=== PATIENT | male | born 1955 | race Caucasian/White ===

== ENCOUNTER 2019-05-09 08:38 | Outpatient (CLI) | payer MEDICARE, MEDICAID, SELFPAY ==
[2019-05-09 12:56] VITALS: O2SAT 87; O2SAT 92
== END 2019-05-09 08:39 | disposition home or self-care (01) ==
LOC: RT 08:40
PROVIDERS: Family Provider Nurse Practitioner Family; Visit Provider Internal Medicine Critical Care Medicine
DX: J44.9 Chronic obstructive pulmonary disease, unspecified (principal)
CPT/HCPCS: 94060; 94726; 94729; J7611

== ENCOUNTER 2019-05-09 12:00 | Outpatient (CLI) | payer MEDICARE, MEDICAID, SELFPAY | END 2019-05-09 12:01 | disposition home or self-care (01) | LOC: SLEEP 05-10 16:49 | PROVIDERS: Family Provider Nurse Practitioner Family; Visit Provider Internal Medicine Critical Care Medicine | DX: J44.9 Chronic obstructive pulmonary disease, unspecified (principal); F17.210 Nicotine dependence, cigarettes, uncomplicated | CPT/HCPCS: 94762 ==

== ENCOUNTER 2019-06-20 11:30 | Outpatient (CLI) | payer MEDICARE, MEDICAID, SELFPAY ==
[2019-06-20 12:14] LABS: Alanine Aminotransferase 27 U/L (0-41); Albumin Level 4.3 g/dL (3.5-5.2); Alkaline Phosphatase 90 IU/L (40-130); Anion Gap 10.3 (5-19); Aspartate Amino Transferase 23 U/L (0-40); Blood Urea Nitrogen 10 mg/dL (8-23); Calcium 10.4 mg/dL (8.5-10.5); Carbon Dioxide 32 mmol/L (22-29); Chloride 100 mmol/L (98-107); Globulin 3.4 g/dL (1.3-4.6); Glomerular Filtration Rate 134.8 mL/min (90-130); Glucose 124 mg/dL (65-115); Osmolality Calculated 283 mOsm/kg (285-295); Potassium 4.3 mmol/L (3.5-5.1); Sodium 138 mmol/L (136-145); Total Bilirubin 0.2 mg/dL (0.15-1.2); Total Protein 7.7 g/dL (6.6-8.7)
== END 2019-06-20 11:31 | disposition home or self-care (01) ==
LOC: LAB 11:36
PROVIDERS: Family Provider Nurse Practitioner Family; PCP Nurse Practitioner Family; Visit Provider Internal Medicine Critical Care Medicine
DX: J44.9 Chronic obstructive pulmonary disease, unspecified (principal)
CPT/HCPCS: 80053

== ENCOUNTER 2019-10-30 09:00 | Emergency (ER) | payer MEDICARE, MEDICAID, SELFPAY ==
[2019-10-30 09:04] VITALS: BP 157/86; PULSE 95; RESP 18; TEMP 36.7; O2SAT 98; BMI 26.6
--- NOTE | 2019-10-30 09:27 | ED_ITS ---
HPI - URI/Sore Throat General: Chief Complaint: Upper Respiratory Infection Stated Complaint: SOB, Congestion, light headed Time Seen by Provider: 10/30/19 09:12 Source: patient Mode of arrival: ambulatory Limitations: no limitations History of Present Illness: HPI Narrative: Patient is a 64-year-old male who presents to ED today with complaints of nasal congestion and sinus pain . Patient tells me that he gets very congested when he lies flat. He states when he sits up he will have rhinorrhea. He states when he blows his nose he gets a green phlegm. Patient states symptoms have been present for 5 to 6 months. He takes loratadine daily. He states approximately 3 weeks ago he was treated with doxycycline and steroids which seemed to help however when patient stopped these medications his symptoms returned. He has been using oxymetazoline over the past 1.5 weeks. MD elicited complaint: sinus pain Onset (ago): month(s) Description of mucous: green Able to tolerate fluids by mouth: Yes Associated symptoms: Reports no associated symptoms, nasal congestion and sinus pain; Deny chills, chest pain, fever(s), headache(s), nausea or vomiting Treatments prior to arrival: antibiotics and other (steroids, decongestants ) Review of Systems Const: Denies: fever(s) or chills Eyes: Denies: change in vision, blurry vision, photophobia, floaters or seeing flashes ENMT: Reports: nasal discharge, nasal congestion and sinus pain; Denies: throat pain, uvular edema, odynophagia, ear discharge, change in hearing or tinnitus Card: Denies: chest pain Resp: Denies: dyspnea GI: Denies: nausea or vomiting Musc: Denies: neck pain Skin/Breast: Denies: rash Neuro: Denies: headache(s) PFS ED PFSH: Medical History (Updated 10/30/19 @ 09:36 by COLEMAN Zhang) Afib ASHD (arteriosclerotic heart disease) CHF (congestive heart failure) Colon polyps COPD (chronic obstructive pulmonary disease) GERD (gastroesophageal reflux disease) HTN (hypertension) Pulmonary hypertension Pulmonary nodule, right Skin cancer Xanthelasma Surgical History H/O eye surgery Hx of cataract surgery Status post surgical removal of malignant neoplasm of skin Stented coronary artery Family History Mother Cancer Pancreatic Father COPD (chronic obstructive pulmonary disease) Sister Diabetes Brother Diabetes Social History (Updated 10/30/19 @ 09:11 by Julius Estes RN) Smoking and tobacco status: current every day smoker cigarettes Packs smoked per day: 0.5 Years cigarettes smoked: 50 Quit status (tobacco): not considering quitting Alcohol intake: current Alcohol intake frequency: 0-2 Drinks per Day Alcohol type: beer Desire information about alcohol rehabilitation?: No Substance/Drug Use: never Lives independently: Yes Household members: none Current occupational status: disabled History of recent travel: No Current gender identity: Male Physical Exam Const: COMMON NORMALS: no acute distress, patient oriented x3, no limitations and alert ORIENTATION/CONSCIOUSNESS: Yes oriented to person, Yes oriented to place and Yes oriented to time HENMT: COMMON NORMALS: normocephalic, atraumatic, hearing grossly normal bilaterally, external ears normal, EAC's normal, TM's normal bilaterally, Normal external nose present and oropharynx normal HEAD & SCALP: normal to inspection, normocephalic and atraumatic FACE & SINUS: sinus tenderness frontal and maxillary NOSE: Normal external nose present EXTERNAL EAR: Yes external ears normal EXTERNAL AUDITORY CANAL: EAC's normal TYMPANIC MEMBRANE: TM's normal bilaterally THROAT: no uvular edema Eye: COMMON NORMALS: Equal, round and reactive pupils present, EOMs intact bilaterally, conjunctivae normal and no scleral icterus CONJUNCTIVA: Yes conjunctivae normal PUPIL: Yes Equal, round and reactive pupils present Neck/C-Spine: COMMON NORMALS: full ROM, no lymphadenopathy and no meningeal signs Resp: COMMON NORMALS: normal respiratory effort and clear to auscultation bilaterally AUSCULTATION: clear to auscultation bilaterally OTHER: on his normal 4L O2 with normal sats Cardio: COMMON NORMALS: regular rate and regular rhythm RATE: regular rate RHYTHM: regular rhythm Neuro: COMMON NORMALS: patient oriented x3 SENSORIUM/ORIENTATION: Yes alert, Yes oriented to person, Yes oriented to place and Yes oriented to time MENINGEAL SIGNS: Yes no meningeal signs Skin: COMMON NORMALS: no rashes or lesions noted GENERAL SKIN EXAM: no rashes or lesions noted Course Vital Signs: Vital signs: Vital Signs Temperature 98.0 F 10/30/19 09:04 Pulse Rate 95 10/30/19 09:04 Respiratory Rate 18 10/30/19 09:04 Blood Pressure 157/86 10/30/19 09:04 Pulse Oximetry 98 10/30/19 09:04 MDM - URI/Sore Throat MDM Narrative: Medical decision making narrative: Recommend patient see Dr. Torres for further evaluation of chronic sinusitis. I did not recommend further antibiotics at this time as most cases of sinusitis are not bacterial. We will go ahead and place patient on Flonase and steroids as he has been using the oxymetazoline for 1.5 weeks now. Recommend he discontinue this medication. Discharge Plan Discharge Patient Disposition: Home Clinical Impression: Rhinitis medicamentosa Sinusitis Qualifiers: Sinusitis location: maxillary Chronicity: chronic Qualified Code(s): J32.0 - Chronic maxillary sinusitis Condition: Stable Prescriptions: New prednisone 10 mg tablet 10 mg PO DAILY 6 Days Qty: 20 RF: 0 Children's Flonase Allergy Rlf 50 mcg/actuation spray,suspension 1 spray INTRANASAL DAILY Qty: 16 RF: 0 No Action clopidogrel 75 mg tablet 75 mg PO DAILY RF: 0 omeprazole 40 mg capsule,delayed release(DR/EC) 40 mg PO DAILY RF: 0 alendronate 70 mg tablet, effervescent 70 mg PO DAILY RF: 0 ergocalciferol (vitamin D2) 1,250 mcg (50,000 unit) capsule 1,250 mcg PO .Weekly RF: 0 atorvastatin 80 mg tablet 80 mg PO DAILY RF: 0 isosorbide dinitrate 30 mg tablet 30 mg PO DAILY RF: 0 losartan 100 mg tablet 100 mg PO DAILY RF: 0 loratadine 10 mg tablet 10 mg PO DAILY RF: 0 albuterol sulfate [ProAir HFA] 90 mcg/actuation HFA aerosol inhaler 2 puff INHALATION Q6H PRNRF: 0 tramadol 50 mg tablet 150 mg PO BID RF: 0 acetaminophen [Tylenol Extra Strength] 500 mg tablet 1,500 mg PO BID RF: 0 doxycycline hyclate 100 mg capsule 100 mg PO BID 10 Days Qty: 20 RF: 0 ipratropium-albuterol 0.5 mg-3 mg(2.5 mg base)/3 mL solution for nebulization 3 ml INHALATION Q4H Qty: 540 RF: 3 Discharge Orders: Discharge Order (Routine); Ordered 10/30/19 Ordered By: Marta Arnold Referrals: Brandon Torres MD [Physician] - Melina Lockett NP [Primary Care Provider] - Patient Instructions: Sinusitis (ED), Sinusitis - Chronic Activity Restrictions/Additional Instructions: As discussed case management should contact you shortly to set you up an appointment to see Dr. Torres/ENT. Coding Level of Care Code ED Progressive Assembler And Fitter for Samantha Goss
[2019-10-30 10:13] VITALS: BP 150/93; PULSE 91; RESP 20; O2SAT 100
--- NOTE | 2019-10-31 14:35 | PC.SOCIAL ---
Called Dr Torres office regarding referral. Information provided to his staff and they will review then call patient with appt. Faxed records to number provided [phone] with confirmation that records were transmitted successfully.
--- NOTE | 2019-11-04 10:22 | DCPLANNER ---
Patient has a follow up appointment scheduled for Thursday, November 18, 2019 at 1:[address] Torres. Clinic will call patient with appointment information.
--- NOTE | 2019-12-08 08:00 | DCPLANNER ---
Patient had a follow up appointment scheduled for 11.18.[address] Torres - patient did attend appointment.
== END 2019-10-30 10:15 | disposition home or self-care (01) ==
PROVIDERS: Emergency Provider Physician Assistant; PCP Nurse Practitioner Family
DX: J31.0 Chronic rhinitis (principal); J32.0 Chronic maxillary sinusitis; Z79.02 Long term (current) use of antithrombotics/antiplatelets; I48.91 Unspecified atrial fibrillation; I11.0 Hypertensive heart disease with heart failure; I50.9 Heart failure, unspecified; J44.9 Chronic obstructive pulmonary disease, unspecified; F17.210 Nicotine dependence, cigarettes, uncomplicated
CPT/HCPCS: 12345; 99281

== ENCOUNTER 2019-12-25 05:37 | Emergency (ER) | payer MEDICARE, MEDICAID, SELFPAY ==
[2019-12-25 05:45] VITALS: BP 137/87; PULSE 98; RESP 18; TEMP 36.9; O2SAT 98; BMI 27.3
[2019-12-25 06:04] VITALS: BP 132/88; PULSE 114; RESP 22; O2SAT 98
[2019-12-25 06:19] LABS: Basophils % 0.3 %; Eosinophils # 0.2 10^3/uL (0.0-0.8); Eosinophils % 1.6 %; Hematocrit 43.4 % (42.0-52.0); Mean Corpuscular HGB Conc 32.3 g/dL (30.0-36.0); Mean Corpuscular Hemoglobin 33.4 pg (28.0-34.0); Mean Corpuscular Volume 103.6 fL (80-94); Monocytes # 0.3 10^3/uL (0.2-0.9); Monocytes % 1.9 %; Neutrophils # 12.44 10^3/uL (1.8-7.7); Neutrophils % 88.6 %; Nucleated Red Blood Cells % 0.1 %; Platelet Count 301 10^3/cmm (130-400); Red Blood Count 4.19 10^6/uL (4.1-5.3); Red Cell Distribution Width 13.4 % (12.1-15.1); White Blood Count 14.1 10^3/uL (4.0-10.0)
--- NOTE | 2019-12-25 06:20 | W.ED.ABDPA2 ---
HPI - Abdominal Pain General: Chief Complaint: Abdominal Pain Stated Complaint: ABDOMINAL PAIN / CHILLS / N/V Time Seen by Provider: 12/25/19 06:08 History of Present Illness: HPI narrative: 64 yo male present with complaint of transient abd pain. He woke with sense he needed to urinate but did not. He states he has had abdominal pain intermittently throughout this past week. He states he feels like he may have been poisoned by dish soap because his home health aide did not adequately rinse the dishes when she did them. He is not have any fever. He has had one episode of vomiting and one episode of loose stools this morning and no hematochezia melena hematemesis or coffee-ground emesis he denies dysuria urgency or frequency. He denies any increased difficulty with breathing he has COPD and is chronically on 4 L/min by nasal cannula oxygen. MD elicited complaint: abdominal pain Associated Symptoms: Denies bloating, chills, coffee ground emesis, constipation, diarrhea, dysuria, fever(s), hematochezia, hematemesis, melena, nausea and vomiting Review of Systems Const: Denies: fever(s), chills, body aches, change in appetite, fatigue or malaise ENMT: Denies: throat pain, ear or mastoid pain, nasal discharge or nasal congestion Card: Denies: chest pain, edema, dyspnea on exertion or orthopnea Resp: Denies: dyspnea, productive cough or non-productive cough GI: Denies: abdominal pain, nausea, vomiting, hematemesis, coffee ground emesis, diarrhea, constipation, bloating, hematochezia or melena : Denies: flank pain, dysuria, urinary frequency or urinary urgency Skin/Breast: Denies: rash or pruritus PFS ED PFSH: Medical History (Updated 12/25/19 @ 09:52 by Javed Santamaria DO) Afib ASHD (arteriosclerotic heart disease) CHF (congestive heart failure) Colon polyps COPD (chronic obstructive pulmonary disease) GERD (gastroesophageal reflux disease) HTN (hypertension) Pulmonary hypertension Pulmonary nodule, right Skin cancer Xanthelasma Surgical History H/O eye surgery Hx of cataract surgery Status post surgical removal of malignant neoplasm of skin Stented coronary artery Family History Mother Cancer Pancreatic Father COPD (chronic obstructive pulmonary disease) Sister Diabetes Brother Diabetes Social History (Updated 10/30/19 @ 09:11 by Julius Estes RN) Smoking and tobacco status: current every day smoker cigarettes Packs smoked per day: 0.5 Years cigarettes smoked: 50 Quit status (tobacco): not considering quitting Alcohol intake: current Alcohol intake frequency: 0-2 Drinks per Day Alcohol type: beer Desire information about alcohol rehabilitation?: No Lives independently: Yes Household members: none Current occupational status: disabled History of recent travel: No Current gender identity: Male Physical Exam Const: COMMON NORMALS: no acute distress GENERAL APPEARANCE: cooperative and comfortable ORIENTATION/CONSCIOUSNESS: Yes awake, Yes oriented to person, Yes oriented to place and Yes oriented to time HENMT: COMMON NORMALS: normocephalic, atraumatic and hearing grossly normal bilaterally HEAD & SCALP: normocephalic and atraumatic Eye: COMMON NORMALS: Equal, round and reactive pupils present, EOMs intact bilaterally, conjunctivae normal and no scleral icterus CONJUNCTIVA: Yes conjunctivae normal PUPIL: Yes Equal, round and reactive pupils present Neck/C-Spine: COMMON NORMALS: no JVD Resp: COMMON NORMALS: normal respiratory effort, No retractions, No use of accessory muscles and clear to auscultation bilaterally AUSCULTATION: clear to auscultation bilaterally Cardio: COMMON NORMALS: no JVD, regular rate, regular rhythm and No murmurs present (Cardio) RATE: regular rate RHYTHM: regular rhythm GI: COMMON NORMALS: Soft to palpation and No hepatosplenomegaly present AUSCULTATION: Yes normoactive bowel sounds PALPATION: Yes Soft to palpation, No Tenderness to palpation present (GI), No Guarding due to palpation present (GI) and Yes No hepatosplenomegaly present Extremity: COMMON NORMALS: normal to inspection, capillary refill normal, no clubbing, cyanosis or edema, no calf tenderness and no pedal edema Neuro: SENSORIUM/ORIENTATION: Yes oriented to person, Yes oriented to place and Yes oriented to time Skin: COMMON NORMALS: no rashes or lesions noted GENERAL SKIN EXAM: no rashes or lesions noted Course Vital Signs: Vital signs: Vital Signs Temperature 98.4 F 12/25/19 05:45 Pulse Rate 99 09/27/20 06:43 Respiratory Rate 22 H 12/25/19 06:04 Blood Pressure 119/84 12/25/19 06:43 Pulse Oximetry 99 12/25/19 06:43 MDM - Abdominal Pain MDM Narrative: Medical decision making narrative: CT of the abdomen shows little thickening of the bowel wall he is completely pain-free at this time. His oxygen saturations are maintaining and usual oxygen level. There is also question of little bit of fibrosis at the base of his right lung. We will start him on a course of Cipro and Flagyl should help with any respiratory issues as well as help with his colitis clear liquid diet for 24 hours and advance as tolerated if he worsens return Lab Data: Labs: Lab Results 12/25/19 12/25/19 12/25/19 Range/Units 05:00 05:00 05:00 WBC 14.1 H (4.0-10.0) 10^3/ uL RBC 4.19 (4.1-5.3) 10^6/u L Hgb 14.0 (11.7-16.6) g/dL Hct 43.4 (42.0-52.0) % MCV 103.6 H (80-94) fL MCH 33.4 (28.0-34.0) pg MCHC 32.3 (30.0-36.0) g/dL RDW 13.4 (12.1-15.1) % Plt Count 301 (130-400) 10^3/c mm MPV 10.0 (7.4-10.4) fL Neut % (Auto) 88.6 % Lymph % (Auto) 7.0 % Stewart % (Auto) 1.9 % Eos % (Auto) 1.6 % Baso % (Auto) 0.3 % Neut # (Auto) 12.44 H (1.8-7.7) 10^3/u L Lymph # (Auto) 1.0 (0.8-4.8) 10^3/u L Stewart # (Auto) 0.3 (0.2-0.9) 10^3/u L Eos # (Auto) 0.2 (0.0-0.8) 10^3/u L Baso # (Auto) 0.0 (0.0-0.1) 10^3/u L Nucleated RBC % (a uto) 0.1 % Nucleated RBCs # 0.0 /100WBC Fibrinogen 467 (174-498) mg/dL D-Dimer 0.36 (0-0.59) ug/mIFE U Specimen Type Sample Site ABG pH (7.35-7.45) ABG pCO2 (35-45) mmHg ABG pO2 (80.0-100.0) mmH g ABG HCO3 (22-26) mmol/L ABG Base Excess (-2.0-2.0) mmol/ L Dilan Test Hematocrit (42-52) % O2 Delivery Device O2 Liters/Min % Martial Arts Instructor ID Sodium 136 (136-145) mmol/L Potassium 4.6 (3.5-5.1) mmol/L Chloride 103 (98-107) mmol/L Carbon Dioxide 25 (22-29) mmol/L Anion Gap 12.6 (5-19) BUN 18 (8-23) mg/dL Creatinine 1.1 (0.7-1.2) mg/dL GFR Calculation 67.0 L (90-130) mL/min Glucose 141 H (65-115) mg/dL Calculated Osmolal ity 286 (285-295) mOsm/k g Lactic Acid (0.5-2.2) mmol/L Calcium 9.8 (8.5-10.5) mg/dL Ferritin (30-400) ng/mL Total Bilirubin 0.3 (0.15-1.2) mg/dL AST 29 (0-40) U/L ALT 34 (0-41) U/L Alkaline Phosphata se 88 (40-130) IU/L Lactate Dehydrogen ase (135-225) U/L C-Reactive Protein (0.0-4.9) mg/L Total Protein 6.6 (6.6-8.7) g/dL Albumin 4.1 (3.5-5.2) g/dL Globulin 2.5 (1.3-4.6) g/dL Amylase 31 (28-100) U/L Lipase 22 (13-60) U/L Procalcitonin (0-0.5) ng/mL Urine Color (Yellow) Urine Appearance (CLEAR) Urine pH (5-7) Ur Specific Gravit y (1.005-1.030) Urine Protein (Negative) Urine Glucose (UA) (Normal) Urine Ketones (Negative) Urine Blood (Negative) Urine Nitrate (Negative) Urine Bilirubin (Negative) Urine Urobilinogen (Negative) mg/dL Ur Leukocyte Nae ase (Negative) Urine RBC (0-2) /hpf Urine WBC (0-5) /hpf Ur Squamous Epith Cells (0-5) /hpf Amorphous Sediment Urine Bacteria (NONE) /hpf Urine Mucus /hpf SARS-CoV-2 Ag (Rap id) (Negative) 12/25/19 12/25/19 12/25/19 Range/Units 05:00 06:11 08:00 WBC (4.0-10.0) 10^3/ uL RBC (4.1-5.3) 10^6/u L Hgb (11.7-16.6) g/dL Hct (42.0-52.0) % MCV (80-94) fL MCH (28.0-34.0) pg MCHC (30.0-36.0) g/dL RDW (12.1-15.1) % Plt Count (130-400) 10^3/c mm MPV (7.4-10.4) fL Neut % (Auto) % Lymph % (Auto) % Stewart % (Auto) % Eos % (Auto) % Baso % (Auto) % Neut # (Auto) (1.8-7.7) 10^3/u L Lymph # (Auto) (0.8-4.8) 10^3/u L Stewart # (Auto) (0.2-0.9) 10^3/u L Eos # (Auto) (0.0-0.8) 10^3/u L Baso # (Auto) (0.0-0.1) 10^3/u L Nucleated RBC % (a uto) % Nucleated RBCs # /100WBC Fibrinogen (174-498) mg/dL D-Dimer (0-0.59) ug/mIFE U Specimen Type Sample Site ABG pH (7.35-7.45) ABG pCO2 (35-45) mmHg ABG pO2 (80.0-100.0) mmH g ABG HCO3 (22-26) mmol/L ABG Base Excess (-2.0-2.0) mmol/ L Dilan Test Hematocrit (42-52) % O2 Delivery Device O2 Liters/Min % Martial Arts Instructor ID Sodium (136-145) mmol/L Potassium (3.5-5.1) mmol/L Chloride (98-107) mmol/L Carbon Dioxide (22-29) mmol/L Anion Gap (5-19) BUN (8-23) mg/dL Creatinine (0.7-1.2) mg/dL GFR Calculation (90-130) mL/min Glucose (65-115) mg/dL Calculated Osmolal ity (285-295) mOsm/k g Lactic Acid 0.8 (0.5-2.2) mmol/L Calcium (8.5-10.5) mg/dL Ferritin 315 (30-400) ng/mL Total Bilirubin (0.15-1.2) mg/dL AST (0-40) U/L ALT (0-41) U/L Alkaline Phosphata se (40-130) IU/L Lactate Dehydrogen ase 328 H (135-225) U/L C-Reactive Protein 45.7 H (0.0-4.9) mg/L Total Protein (6.6-8.7) g/dL Albumin (3.5-5.2) g/dL Globulin (1.3-4.6) g/dL Amylase (28-100) U/L Lipase (13-60) U/L Procalcitonin 0.10 (0-0.5) ng/mL Urine Color Yellow (Yellow) Urine Appearance Clear (CLEAR) Urine pH 6.5 (5-7) Ur Specific Gravit y 1.015 (1.005-1.030) Urine Protein 1+ H (Negative) Urine Glucose (UA) 2+ (Normal) Urine Ketones 1+ H (Negative) Urine Blood 2+ H (Negative) Urine Nitrate Negative (Negative) Urine Bilirubin Neg (Negative) Urine Urobilinogen Norm (Negative) mg/dL Ur Leukocyte Nae ase Negative (Negative) Urine RBC 0-4 H (0-2) /hpf Urine WBC 0-4 H (0-5) /hpf Ur Squamous Epith Cells None (0-5) /hpf Amorphous Sediment Not Reportable Urine Bacteria 1+ H (NONE) /hpf Urine Mucus 1+ /hpf SARS-CoV-2 Ag (Rap id) (Negative) 09/27/20 09/27/20 Range/Units 08:02 08:05 WBC (4.0-10.0) 10^3/ uL RBC (4.1-5.3) 10^6/u L Hgb (11.7-16.6) g/dL Hct (42.0-52.0) % MCV (80-94) fL MCH (28.0-34.0) pg MCHC (30.0-36.0) g/dL RDW (12.1-15.1) % Plt Count (130-400) 10^3/c mm MPV (7.4-10.4) fL Neut % (Auto) % Lymph % (Auto) % Stewart % (Auto) % Eos % (Auto) % Baso % (Auto) % Neut # (Auto) (1.8-7.7) 10^3/u L Lymph # (Auto) (0.8-4.8) 10^3/u L Stewart # (Auto) (0.2-0.9) 10^3/u L Eos # (Auto) (0.0-0.8) 10^3/u L Baso # (Auto) (0.0-0.1) 10^3/u L Nucleated RBC % (a uto) % Nucleated RBCs # /100WBC Fibrinogen (174-498) mg/dL D-Dimer (0-0.59) ug/mIFE U Specimen Type Arterial Sample Site Radial, left ABG pH 7.36 (7.35-7.45) ABG pCO2 40.8 (35-45) mmHg ABG pO2 110.0 H (80.0-100.0) mmH g ABG HCO3 22.9 (22-26) mmol/L ABG Base Excess -2.5 L (-2.0-2.0) mmol/ L Dilan Test Pos Hematocrit 40.2 L (42-52) % O2 Delivery Device Nc O2 Liters/Min 4.0 % Martial Arts Instructor ID Broma Sodium (136-145) mmol/L Potassium (3.5-5.1) mmol/L Chloride (98-107) mmol/L Carbon Dioxide (22-29) mmol/L Anion Gap (5-19) BUN (8-23) mg/dL Creatinine (0.7-1.2) mg/dL GFR Calculation (90-130) mL/min Glucose (65-115) mg/dL Calculated Osmolal ity (285-295) mOsm/k g Lactic Acid (0.5-2.2) mmol/L Calcium (8.5-10.5) mg/dL Ferritin (30-400) ng/mL Total Bilirubin (0.15-1.2) mg/dL AST (0-40) U/L ALT (0-41) U/L Alkaline Phosphata se (40-130) IU/L Lactate Dehydrogen ase (135-225) U/L C-Reactive Protein (0.0-4.9) mg/L Total Protein (6.6-8.7) g/dL Albumin (3.5-5.2) g/dL Globulin (1.3-4.6) g/dL Amylase (28-100) U/L Lipase (13-60) U/L Procalcitonin (0-0.5) ng/mL Urine Color (Yellow) Urine Appearance (CLEAR) Urine pH (5-7) Ur Specific Gravit y (1.005-1.030) Urine Protein (Negative) Urine Glucose (UA) (Normal) Urine Ketones (Negative) Urine Blood (Negative) Urine Nitrate (Negative) Urine Bilirubin (Negative) Urine Urobilinogen (Negative) mg/dL Ur Leukocyte Nae ase (Negative) Urine RBC (0-2) /hpf Urine WBC (0-5) /hpf Ur Squamous Epith Cells (0-5) /hpf Amorphous Sediment Urine Bacteria (NONE) /hpf Urine Mucus /hpf SARS-CoV-2 Ag (Rap id) Negative (Negative) Discharge Plan Discharge Patient Disposition: Home Clinical Impression: COPD (chronic obstructive pulmonary disease), Colitis Condition: Stable Prescriptions: New Cipro 500 mg tablet 500 mg PO BID Qty: 10 RF: 0 Flagyl 500 mg tablet 500 mg PO BID 10 Days Qty: 20 RF: 0 promethazine 25 mg tablet 25 mg PO Q6H PRN (Reason: nausea and vomiting) Qty: 20 RF: 0 No Action clopidogrel 75 mg tablet 75 mg PO DAILY RF: 0 omeprazole 40 mg capsule,delayed release(DR/EC) 40 mg PO DAILY RF: 0 alendronate 70 mg tablet, effervescent 70 mg PO DAILY RF: 0 ergocalciferol (vitamin D2) 1,250 mcg (50,000 unit) capsule 1,250 mcg PO .Weekly RF: 0 atorvastatin 80 mg tablet 80 mg PO DAILY RF: 0 isosorbide dinitrate 30 mg tablet 30 mg PO DAILY RF: 0 losartan 100 mg tablet 100 mg PO DAILY RF: 0 loratadine 10 mg tablet 10 mg PO DAILY RF: 0 albuterol sulfate [ProAir HFA] 90 mcg/actuation HFA aerosol inhaler 2 puff INHALATION Q6H PRNRF: 0 tramadol 50 mg tablet 150 mg PO BID RF: 0 acetaminophen [Tylenol Extra Strength] 500 mg tablet 1,500 mg PO BID RF: 0 doxycycline hyclate 100 mg capsule 100 mg PO BID 10 Days Qty: 20 RF: 0 ipratropium-albuterol 0.5 mg-3 mg(2.5 mg base)/3 mL solution for nebulization 3 ml INHALATION Q4H Qty: 540 RF: 3 Trelegy Ellipta 100-62.5-25 mcg blister with device 1 inh INHALATION DAILY Qty: 60 RF: 3 Children's Flonase Allergy Rlf 50 mcg/actuation spray,suspension 1 spray INTRANASAL DAILY Qty: 16 RF: 0 Discharge Orders: Discharge Order (Routine); Ordered 12/25/19 Ordered By: Javed Santamaria Referrals: Melina Lockett NP [Primary Care Provider] - Discharge Diet: Clear Liquid Discharge Activity: Increase activity as tolerated Activity Restrictions/Additional Instructions: Follow-up with your doctor as needed. If not improving recheck if worsening return to the emergency room Coding Level of Care Code ED Structural Steel Worker Helper for Samantha Goss Exam Comprehensive
[2019-12-25 06:26] LABS: Alanine Aminotransferase 34 U/L (0-41); Albumin Level 4.1 g/dL (3.5-5.2); Alkaline Phosphatase 88 IU/L (40-130); Amylase 31 U/L (28-100); Anion Gap 12.6 (5-19); Aspartate Amino Transferase 29 U/L (0-40); Blood Urea Nitrogen 18 mg/dL (8-23); Calcium 9.8 mg/dL (8.5-10.5); Carbon Dioxide 25 mmol/L (22-29); Chloride 103 mmol/L (98-107); Globulin 2.5 g/dL (1.3-4.6); Glucose 141 mg/dL (65-115); Lipase 22 U/L (13-60); Osmolality Calculated 286 mOsm/kg (285-295); Potassium 4.6 mmol/L (3.5-5.1); Sodium 136 mmol/L (136-145); Total Bilirubin 0.3 mg/dL (0.15-1.2); Total Protein 6.6 g/dL (6.6-8.7)
--- NOTE | 2019-12-25 06:38 | XRR_ITS ---
PROCEDURE INFORMATION: Exam: XR Chest, 1 View Exam date and time: 12/25/2019 6:39 AM Age: 64 years old Clinical indication: Cough and dyspnea; Additional info: Dyspnea/cough TECHNIQUE: Imaging protocol: XR of the chest Views: 1 view. COMPARISON: CT chest con [id number] 02/04/2019 11:08 AM FINDINGS: Lungs: Severe emphysema Interstitial prominence within the right lower lobe. Findings are concerning for an interstitial infiltrate. Follow-up recommended. Pleural space: Unremarkable. No pleural effusion. No pneumothorax. Heart/Mediastinum: Unremarkable. No cardiomegaly. Bones/joints: Unremarkable. XR/XR chest 1V portable [id number] IMPRESSION: Interstitial prominence within the right lower lobe. Findings are concerning for an interstitial infiltrate. Follow-up recommended.
--- NOTE | 2019-12-25 06:38 | XRR_ITS ---
PROCEDURE INFORMATION: Exam: XR Abdomen, 1 View Exam date and time: 12/25/2019 6:39 AM Age: 64 years old Clinical indication: Other: Dyspnea, cough TECHNIQUE: Imaging protocol: XR of the abdomen. Views: Frontal supine view of the abdomen. 1 View. COMPARISON: [place] [id number] 04/29/2017 11:06 AM FINDINGS: Gastrointestinal tract: Bowel gas pattern is nonspecific. No mass effect upon the bowel loops. Distal rectal gas. Scattered loops of air filled small bowel none of which are dilated. Bones/joints: No acute process within the osseous structures of the spine or pelvis. Other findings: No appreciable calcifications XR/XR KUB portable [id number] IMPRESSION: Bowel gas pattern is nonspecific. Limited exam. Consider CT if indicated
[2019-12-25 06:39] LABS: Blood Urine 2+ (Negative); Glucose Urine UA 2+ (Normal); Ketones Urine 1+ (Negative); Protein Urine 1+ (Negative); Specific Gravity, Urine 1.015 (1.005-1.030); Urine Appearance Clear (CLEAR); Urine Color Yellow (Yellow); pH Urine 6.5 (5-7)
[2019-12-25 06:40] LABS: Add Urine Culture? No; Add Urine Microscopic? YES; Bacteria Urine 1+ /hpf; Bilirubin Urine Neg (Negative); Leukocyte Esterase Urine Negative (Negative); Mucus Urine 1+ /hpf; Nitrate Urine Negative (Negative); RBC Urine 0-4 /hpf (0-2); Urobilinogen Urine Norm (Negative); WBC Urine 0-4 /hpf (0-5)
[2019-12-25 06:43] VITALS: BP 119/84; PULSE 99; O2SAT 99
[2019-12-25 07:59] LABS: Fibrinogen 467 mg/dL (174-498)
[2019-12-25 08:02] LABS: D Dimer 0.36 ug/mIFEU (0-0.59)
[2019-12-25 08:15] LABS: ABG PCO2 40.8 mmHg (35-45); ABG PH Result 7.36 (7.35-7.45); Arterial Blood Gas Hematocrit 40.2 % (42-52); Base Excess ABG -2.5 mmol/L (-2.0-2.0); Blood Gas Allen Test Pos; Blood Gas Operator Identificat BROMA; Blood Gas Sample Site Radial, left; Blood Gas Sample Type Arterial; HCO3 ABG 22.9 mmol/L (22-26); Oxygen Device NC
[2019-12-25 08:26] LABS: C Reactive Protein 45.7 mg/L (0.0-4.9); Ferritin 315 ng/mL (30-400)
[2019-12-25 08:26] LABS: Lactic Sepsis W/Reflex 0.8 mmol/L (0.5-2.2)
[2019-12-25 08:28] LABS: SARS Covid-2 Antigen Negative (Negative)
[2019-12-25 08:40] LABS: Lactate Dehydrogenase 328 U/L (135-225)
--- NOTE | 2019-12-25 08:49 | CTR_ITS ---
PROCEDURE INFORMATION: Exam: CT Abdomen And Pelvis With Contrast Exam date and time: 12/25/2019 8:59 AM Age: 64 years old Clinical indication: Abdominal pain; Generalized; Additional info: Abd pain TECHNIQUE: Imaging protocol: Computed tomography of the abdomen and pelvis with intravenous contrast. Radiation optimization: All CT scans at this facility use at least one of these dose optimization techniques: automated exposure control; mA and/or kV adjustment per patient size (includes targeted exams where dose is matched to clinical indication); or iterative reconstruction. Contrast material: OMNIPAQUE 300; Contrast volume: 95 ml; Contrast route: INTRAVENOUS (IV); COMPARISON: [place] [id number] 04/29/2017 11:06 AM RADIATION DOSE METRICS: Total DLP (mGy-cm): 890.88 FINDINGS: Lungs: interstitial prominence within the right lower lobe. Previously noted. Likely fibrotic. Calcified granuloma left lower lobe Liver: Normal. No mass. Gallbladder and bile ducts: Gallstones. Fold within the gallbladder/pharyngeal cap. Pancreas: Normal. No ductal dilation. Spleen: Normal. No splenomegaly. Adrenals: Normal. No mass. Kidneys and ureters: Normal. No hydronephrosis. Stomach and bowel: Suggestion of mild thickening of the large bowel including the ascending colon hepatic flexure and a portion of the transverse colon. Possible colitis either infectious versus inflammatory versus lack of distension. Scattered loops of air and fluid-filled small bowel. Nondilated. Ileus. Appendix: No evidence of appendicitis. Intraperitoneal space: Unremarkable. No free air. No significant fluid collection. Vasculature: Unremarkable. No abdominal aortic aneurysm. Lymph nodes: Unremarkable. No enlarged lymph nodes. Urinary bladder: Unremarkable as visualized. Reproductive: Unremarkable as visualized. Bones/joints: Unremarkable. No acute fracture. 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 No collapse. Soft tissues: Unremarkable. CT/CT abdomen pelvis w con* [id number] IMPRESSION: 1. Suggestion of mild thickening of the large bowel including the ascending colon hepatic flexure and a portion of the transverse colon. Possible colitis either infectious versus inflammatory versus lack of distension. Fluid-filled large bowel. 2. Gallstones. Fold within the gallbladder/pharyngeal cap. Prominence of the common bile duct. No visualized filling defect. Correlate with LFTs. 3. Scattered loops of air and fluid-filled small bowel. Nondilated. Ileus. 4. Interstitial prominence within the right lower lobe. Previously noted. Likely fibrotic. 5. Avascular necrosis right and left femoral heads. Radiation Dose CTDIVOL = (mGy): DLP = 890.88 (mGy-cm)
[2019-12-25] MEDS: iohexol 300 mg/mL 100 mL Btl IV (09:19)
[2019-12-25 10:24] VITALS: BP 148/80; PULSE 78; RESP 15; O2SAT 98
== END 2019-12-25 10:24 | disposition home or self-care (01) ==
PROVIDERS: Emergency Medicine; Emergency Provider Family Medicine; PCP Nurse Practitioner Family
DX: K52.9 Noninfective gastroenteritis and colitis, unspecified (principal); J44.9 Chronic obstructive pulmonary disease, unspecified; Z79.02 Long term (current) use of antithrombotics/antiplatelets; I48.91 Unspecified atrial fibrillation; I11.0 Hypertensive heart disease with heart failure; I50.9 Heart failure, unspecified; Z85.828 Personal history of other malignant neoplasm of skin; F17.210 Nicotine dependence, cigarettes, uncomplicated
CPT/HCPCS: 12345; 36600; 71045; 74018; 74177; 80053; 81001; 82150; 82728; 82803; 83605; 83615; 83690; 84145; 85025; 85378; 85384; 86140; 87426; 99283; 99284; Q9967

== ENCOUNTER 2020-01-25 06:00 | Outpatient (RCR) | payer MEDICARE, MEDICAID, SELFPAY | END 2020-01-28 23:00 | disposition home or self-care (01) | LOC: SOT 06:00 | PROVIDERS: PCP Nurse Practitioner Family; Referring Provider Nurse Practitioner Family; Visit Provider Nurse Practitioner Family | DX: S22.000D Wedge compression fracture of unspecified thoracic vertebra, subsequent encounter for fracture with routine healing (principal); X58.XXXD Exposure to other specified factors, subsequent encounter; M47.26 Other spondylosis with radiculopathy, lumbar region; J44.9 Chronic obstructive pulmonary disease, unspecified | CPT/HCPCS: 97167 ==

== ENCOUNTER → 2020-07-30 11:53 | Outpatient (BNVA) | payer MEDICARE, MEDICAID, SELFPAY | PROVIDERS: PCP Nurse Practitioner Family; Visit Provider Nurse Practitioner Family | DX: J44.9 Chronic obstructive pulmonary disease, unspecified (principal); I50.9 Heart failure, unspecified; E78.2 Mixed hyperlipidemia; J96.11 Chronic respiratory failure with hypoxia; M54.6 Pain in thoracic spine; G89.29 Other chronic pain; I10 Essential (primary) hypertension; Z12.5 Encounter for screening for malignant neoplasm of prostate; E55.9 Vitamin D deficiency, unspecified | CPT/HCPCS: 81003 ==

== ENCOUNTER → 2020-09-27 14:59 | Outpatient (BNVA) | payer MEDICARE, MEDICAID, SELFPAY | PROVIDERS: PCP Nurse Practitioner Family; Visit Provider Nurse Practitioner Family | DX: I10 Essential (primary) hypertension (principal); E78.2 Mixed hyperlipidemia; E55.9 Vitamin D deficiency, unspecified; I50.9 Heart failure, unspecified; Z12.5 Encounter for screening for malignant neoplasm of prostate | CPT/HCPCS: 80053; 80061; 82306; 84443; 85025; G0103 ==

== ENCOUNTER 2020-12-31 08:30 | Outpatient (CLI) | payer MEDICARE, MEDICAID, SELFPAY ==
--- NOTE | 2020-12-31 09:15 | CT_ITS ---
WS: [id number] CT scan of the chest without IV contrast, additional two-dimensional coronal and sagittal reconstruct ion was performed. 12/31/2020 Clinical Data: COPD Comparison: CT chest, 02/04/2019. DLP: 1245.38 mGy-cm All CT scans at [facility] use at least one of these dose optimization techniques: automated e xposure control; mA and/or kV adjustment per patient size (includes targeted exams where dose is matc hed to clinical indication); or iterative reconstruction. Findings: The nodule at the fissure at the right middle lobe and right lower lobe junction measures 1.0 cm and shows no change in size or configuration. It is seen best on axial image [id number] The left upper lobe and left lower lobe nodules are not seen on this examination. The semisolid right upper lobe nodule has reduced in size to 0.3 cm. There may be a 1.0 cm nodule adjacent to the surface of the left diaph ragm seen best on image 422/559. There is hyperexpansion and pleural irregularity consistent with chr onic obstructive pulmonary disease. The lower lobes show bronchiectasis and bronchial wall thickening especially on the right. There is a shift of the heart and mediastinum from left to right. The heart size is normal with no pericardial effusion. Coronary artery calcification is present. The pulmonary arterial system and thoracic aorta demonstrate no abnormalities or dilatations. There is no axillary or significant mediastinal adenopathy. No bony metastatic lesions are seen but diffuse osteoporosis and mid thoracic vertebral body wedging remains the same. The upper abdomen shows no change from before CT/CT chest wo con [id number] Impression: 1. No change in nodule at the junction of the right middle lobe and right lower lobe. 2. Possible nodule over surface of left diaphragm. 3. Severe COPD with pleural thickening, bronchiectasis and hyperexpansion.
== END 2020-12-31 08:31 | disposition home or self-care (01) ==
PROVIDERS: PCP Nurse Practitioner Family; Visit Provider Internal Medicine Critical Care Medicine
DX: J44.1 Chronic obstructive pulmonary disease with (acute) exacerbation (principal); R91.1 Solitary pulmonary nodule
CPT/HCPCS: 71250; 77011

== ENCOUNTER → 2021-01-09 11:02 | Outpatient (BNVA) | payer MEDICARE, MEDICAID, SELFPAY | PROVIDERS: PCP Nurse Practitioner Family; Visit Provider Internal Medicine Critical Care Medicine | DX: Z20.822 Contact with and (suspected) exposure to COVID-19 (principal); J44.1 Chronic obstructive pulmonary disease with (acute) exacerbation | CPT/HCPCS: 87635 ==

== ENCOUNTER 2021-01-16 13:31 | Outpatient (CLI) | payer MEDICARE, MEDICAID, SELFPAY ==
--- NOTE | 2021-01-16 14:04 | PFTS_ITS ---
Date of Study:01/16/21 Date of Dictation: MECHANICS: Forced vital capacity (FVC) is reduced. Forced expiratory volume in one second (FEV1) is reduced. FEV1/FVC is reduced. FLOW VOLUME LOOP: Reduced flow at all lung volumes with significant scooping. LUNG VOLUMES: Lung volumes were not measured DIFFUSING CAPACITY FOR CARBON MONOXIDE: Severely reduced. INTERPRETATION: The pulmonary function tests are consistent with very severe airflow obstruction. A component of restrictive lung disease cannot be ruled out in the absence of lung volume measurement. Gas exchange (DLCO) is severely reduced. MTDD
== END 2021-01-16 13:32 | disposition home or self-care (01) ==
LOC: RT 13:34
PROVIDERS: PCP Nurse Practitioner Family; Visit Provider Internal Medicine Critical Care Medicine
DX: J44.9 Chronic obstructive pulmonary disease, unspecified (principal)
CPT/HCPCS: 94060; 94729; J7611

== ENCOUNTER → 2021-06-18 12:33 | Outpatient (BNVA) | payer MEDICARE, MEDICAID, SELFPAY | PROVIDERS: PCP Nurse Practitioner Family; Visit Provider Internal Medicine Critical Care Medicine | DX: I11.0 Hypertensive heart disease with heart failure (principal); I50.9 Heart failure, unspecified; I25.10 Atherosclerotic heart disease of native coronary artery without angina pectoris; I48.91 Unspecified atrial fibrillation; J44.9 Chronic obstructive pulmonary disease, unspecified; I27.20 Pulmonary hypertension, unspecified; K21.9 Gastro-esophageal reflux disease without esophagitis; Z87.891 Personal history of nicotine dependence; J96.11 Chronic respiratory failure with hypoxia | CPT/HCPCS: 99214 ==

== ENCOUNTER → 2021-09-20 09:24 | Outpatient (BNVA) | payer MEDICARE, MEDICAID, SELFPAY | PROVIDERS: PCP Nurse Practitioner Family; Visit Provider Internal Medicine Critical Care Medicine | DX: J44.9 Chronic obstructive pulmonary disease, unspecified (principal); J96.11 Chronic respiratory failure with hypoxia; Z87.891 Personal history of nicotine dependence; Z99.81 Dependence on supplemental oxygen; I10 Essential (primary) hypertension; E78.5 Hyperlipidemia, unspecified; K21.9 Gastro-esophageal reflux disease without esophagitis | CPT/HCPCS: 99214 ==

== ENCOUNTER → 2022-01-07 13:17 | Outpatient (BNVA) | payer MEDICARE, MEDICAID, SELFPAY | PROVIDERS: PCP Family Medicine; Visit Provider Family Medicine | DX: I27.20 Pulmonary hypertension, unspecified (principal); I50.9 Heart failure, unspecified; J44.9 Chronic obstructive pulmonary disease, unspecified; I10 Essential (primary) hypertension; M81.0 Age-related osteoporosis without current pathological fracture; G89.29 Other chronic pain; G89.4 Chronic pain syndrome; Z87.891 Personal history of nicotine dependence; E78.2 Mixed hyperlipidemia; Z79.899 Other long term (current) drug therapy | CPT/HCPCS: 80053; 80061; 83036; 84443; 85025 ==

== ENCOUNTER 2022-01-22 13:04 | Outpatient (CLI) | payer MEDICARE, MEDICAID, SELFPAY ==
--- NOTE | 2022-01-22 14:21 | CT_ITS ---
WS: [id number] LDCT LUNG CANCER SCREENING TECHNIQUE: Noncontrast CT of the chest with coronal and sagittal reformatted images. CLINICAL INFORMATION: Lung cancer screenin COMPARISON: CT chest December 31, [address] chest February 04, 2019 DLP: 74.51 mGy.cm DIvol: Mean CTDIvol: 1.60 (mGy) All CT scans at [facility] use at least one of these dose optimization techniques: automat ed exposure control; mA and/or kV adjustment per patient size (includes targeted exams where dose is matched to clinical indication); or iterative reconstruction. FINDINGS:Stable 7 mm nodule along the RIGHT fissure. Slight subpleural micronodularity in the RIGHT u pper lobe unchanged. Calcified granulomas LEFT lower lobe. Small LEFT lower lobe nodule along the saloni phragm measuring 5 mm. Noncalcified LEFT lower lobe nodules measuring 3-4 mm. Hyperinflation. Moderate to advanced chronic emphysematous changes. No acute pulmonary infiltrates. N o focal pneumonia or pleural fluid. Perihilar and bilateral lower lobe RIGHT greater than LEFT bronch iectasis unchanged. Subsegmental atelectasis and fibrosis RIGHT lower lobe unchanged. Adrenal glands are normal. Normal GE junction. Mild thoracic kyphosis. Hypertrophic changes thoracic spine with ankylosis. No mediastinal or hilar lymphadenopathy. No axillary lymphadenopathy. Aortic ca lcification. Coronary calcification. CT/CT lung screening [id number] IMPRESSION: LUNG-RADS: 2-Benign Appearance or Behavior FOLLOW UP: 12 Month: Continue annual screening with LDCT
== END 2022-01-22 13:05 | disposition home or self-care (01) ==
LOC: RAD 13:06
PROVIDERS: PCP Family Medicine; Visit Provider Internal Medicine Critical Care Medicine
DX: Z12.2 Encounter for screening for malignant neoplasm of respiratory organs (principal); Z87.891 Personal history of nicotine dependence
CPT/HCPCS: 71271

== ENCOUNTER → 2022-03-10 13:05 | Outpatient (BNVA) | payer MEDICARE, MEDICAID, SELFPAY | PROVIDERS: PCP Family Medicine; Visit Provider Internal Medicine Cardiovascular Disease | DX: I48.0 Paroxysmal atrial fibrillation (principal); I11.0 Hypertensive heart disease with heart failure; I50.9 Heart failure, unspecified; I25.10 Atherosclerotic heart disease of native coronary artery without angina pectoris; Z87.891 Personal history of nicotine dependence | CPT/HCPCS: 93005; 99214 ==

== ENCOUNTER → 2022-06-09 16:36 | Outpatient (BNVA) | payer MEDICARE, MEDICAID, SELFPAY | PROVIDERS: PCP Family Medicine; Visit Provider Family Medicine | DX: E78.2 Mixed hyperlipidemia (principal); G89.4 Chronic pain syndrome; J44.1 Chronic obstructive pulmonary disease with (acute) exacerbation; M54.6 Pain in thoracic spine; G89.29 Other chronic pain; J01.40 Acute pansinusitis, unspecified; Z79.899 Other long term (current) drug therapy; Z87.891 Personal history of nicotine dependence | CPT/HCPCS: 83036 ==

== ENCOUNTER → 2022-07-25 12:12 | Outpatient (BNVA) | payer MEDICARE, MEDICAID, SELFPAY | PROVIDERS: PCP Family Medicine; Visit Provider Family Medicine | DX: E78.2 Mixed hyperlipidemia (principal); Z79.899 Other long term (current) drug therapy; G89.4 Chronic pain syndrome; J44.1 Chronic obstructive pulmonary disease with (acute) exacerbation; M54.6 Pain in thoracic spine; G89.29 Other chronic pain; J01.40 Acute pansinusitis, unspecified; Z12.5 Encounter for screening for malignant neoplasm of prostate; Z87.891 Personal history of nicotine dependence | CPT/HCPCS: 80053; 84402; 84403; 85025; G0103 ==

== ENCOUNTER → 2022-08-26 10:53 | Outpatient (BNVA) | payer MEDICARE, MEDICAID, SELFPAY | PROVIDERS: PCP Family Medicine; Visit Provider Family Medicine | DX: Z87.891 Personal history of nicotine dependence (principal); E78.2 Mixed hyperlipidemia; Z79.899 Other long term (current) drug therapy; M54.6 Pain in thoracic spine; J44.1 Chronic obstructive pulmonary disease with (acute) exacerbation; G89.29 Other chronic pain; J01.40 Acute pansinusitis, unspecified; Z12.5 Encounter for screening for malignant neoplasm of prostate; J44.9 Chronic obstructive pulmonary disease, unspecified; J96.92 Respiratory failure, unspecified with hypercapnia; R53.83 Other fatigue | CPT/HCPCS: 84443 ==

== ENCOUNTER → 2023-01-05 15:00 | Outpatient (BNVA) | payer MEDICARE, MEDICAID, SELFPAY | PROVIDERS: PCP Family Medicine; Visit Provider Internal Medicine Cardiovascular Disease | DX: I48.0 Paroxysmal atrial fibrillation (principal); I11.0 Hypertensive heart disease with heart failure; I50.9 Heart failure, unspecified; I25.10 Atherosclerotic heart disease of native coronary artery without angina pectoris; Z87.891 Personal history of nicotine dependence | CPT/HCPCS: 99214 ==

== ENCOUNTER 2023-02-03 12:13 | Outpatient (CLI) | payer MEDICARE, MEDICAID, SELFPAY ==
--- NOTE | 2023-02-03 13:00 | CT_ITS ---
WS: [id number] LDCT LUNG CANCER SCREENING HISTORY: Cancer Screen TECHNIQUE: Axial imaging performed from the apices to 1 cm below the costophrenic angles. Coronal and sagittal reformats are submitted with axial MIP series. All CT scans at [facility] use at least one of these dose optimization techniques: automated exposure control; mA and/or kV adjustment per patient size (includes targeted exams where dose is matched to clinical indication); or iterativ e reconstruction. DLP: 70.20 mGy.cm DIvol: Mean CTDIvol: 1.40 (mGy) COMPARISON: 01/22/2022 Diagnostic quality: Satisfactory Lungs: Severe chronic emphysema. New bilateral spiculated asymmetries and nodules. There are several pulmonary nodules that are new or increasing in size. 9 mm nodule abuts the LEFT major fissure which is new. There are new slightly spiculated opacifications in the RIGHT upper lobe measuring up to 9 mm . Overall there has been an increase in the amount of small spiculated opacifications. There are at l east 3 nodules along the LEFT diaphragm which are stable. There is bronchiectasis in the lower lung f ields. Stable 7 mm nodule along the RIGHT fissure. No endobronchial lesions. Heart: Normal size heart with no pericardial effusion.. Moderate coronary artery calcifications. Most significant calcified burden along the LEFT anterior descending coronary. Other findings: Mild atherosclerosis aorta. No adenopathy. Mild pulmonary artery dilatation. Hepatic and splenic granulomata. Increase in thoracic kyphosis. Mild anterior wedging of T5, T6 and T7. No ne w fractures. IMPRESSION: CT/CT lung screening [id number] LUNG-RADS: 4A-Probably Suspicious FOLLOW UP: 3 Month LDCT OTHER FINDINGS (S MODIFIER): None.
== END 2023-02-03 12:14 | disposition home or self-care (01) ==
LOC: RAD 12:13
PROVIDERS: PCP Family Medicine; Visit Provider Internal Medicine Pulmonary Disease
DX: Z12.2 Encounter for screening for malignant neoplasm of respiratory organs (principal); Z87.891 Personal history of nicotine dependence
CPT/HCPCS: 71271

== ENCOUNTER 2023-05-17 15:23 | Emergency (ER) | payer MEDICARE, MEDICAID, SELFPAY ==
--- NOTE | 2023-05-17 15:25 | ED_ITS ---
HPI - Abdominal Pain 2 General: Chief Complaint: Abdominal Pain Stated Complaint: CONSTIPATION Time Seen by Provider: 05/17/23 15:24 Source: patient and EMS Mode of arrival: EMS Limitations: no limitations History of Present Illness: Patient is a nice 68-year-old male who presents to ED today via EMS for evaluation and treatment of constipation. Patient states he chronically is on tramadol. He states he takes 150mg twice daily. He states normally he takes stool softeners with these to avoid constipation however over the past 6 days he has not had a bowel movement. He is still passing gas. No vomiting. He has no previous abdominal surgeries. He has not had any abdominal pain. Patient states he can feel a large amount of stool in his rectal vault but states he is not able to evacuate it. MD elicited complaint: other (constipation) Pertinent past history: none Onset (ago): day(s) Pain Consistency: other (no pain) Radiation: none Migration to: no migration Exacerbating factors: nothing Relieving factors: nothing Associated Symptoms: Reports constipation; Denies chills, fever(s), hematochezia, melena and vomiting Treatments prior to arrival: other ( blue bottle laxatives ) Review of Systems 2 Const: Denies: fever(s), chills, body aches, fatigue or malaise Card: Denies: chest pain Resp: Reports: dyspnea (chronic/at baseline) GI: Reports: constipation; Denies: abdominal pain, vomiting, rectal pain, rectal swelling, hematochezia or melena Musc: Denies: back pain Neuro: Denies: dizziness PFSH ED 2 PFSH: Medical History Osteoporosis Medication management Vitamin D deficiency Prostate cancer screening Mixed hyperlipidemia Chronic back pain Chronic pain Sinusitis COPD (chronic obstructive pulmonary disease) Pulmonary nodule, right Colon polyps Xanthelasma GERD (gastroesophageal reflux disease) Pulmonary hypertension CHF (congestive heart failure) ASHD (arteriosclerotic heart disease) HTN (hypertension) Afib Skin cancer Surgical History H/O eye surgery Hx of cataract surgery Stented coronary artery Status post surgical removal of malignant neoplasm of skin Family History Mother Cancer Pancreatic Father COPD (chronic obstructive pulmonary disease) Sister Diabetes Brother Diabetes Social History Smoking and tobacco/nicotine status: former use of tobacco/nicotine Quit status (tobacco/nicotine): has quit using Year quit tobacco: Dec 26 2019 Former quit date comment: 2-3PPD x 50 years Second hand smoke exposure: Yes Alcohol intake: current Alcohol intake frequency: 0-2 Drinks per Day Alcohol type: beer Substance/Drug Use: never Caregiver/support person: Yes Lives independently: Yes Household members: none Marital status: Single service: Yes Current occupational status: disabled Pets and animals: Yes Do you think of yourself as: Straight/Heterosexual Current gender identity: Male Physical Exam 2 Const: COMMON NORMALS: no acute distress, patient oriented x3, no limitations, alert and well nourished Eye: COMMON NORMALS: no scleral icterus Resp: OTHER: appears in no respiratory distress; he is on chronic oxygen and satting normally Cardio: COMMON NORMALS: regular rate and regular rhythm RATE: regular rate RHYTHM: regular rhythm GI: COMMON NORMALS: Soft to palpation, non-tender, No hepatosplenomegaly present and no masses INSPECTION: Yes other (midline hernia with valsalva-no strangulation/incarceration-chronic) AUSCULTATION: Yes Hypoactive bowel sounds present PALPATION: Yes Soft to palpation and Yes No hepatosplenomegaly present RECTAL EXAM: Yes visual inspection normal and Yes other (large firm stool ball palpated ) Neuro: CRISTINA COMA SCALE: document GCS findings Cristina coma scale eye opening: Spontaneous Cristina coma scale verbal response: Orientated Cristina coma scale motor response: Obey commands [place] coma scale total score: 15 COMMON NORMALS: patient oriented x3 SENSORIUM/ORIENTATION: Yes alert Course 2 Vital Signs: Vital signs: Vital Signs Temperature 97.9 F 05/17/23 15:27 Pulse Rate 110 H 05/17/23 17:15 Blood Pressure 138/88 05/17/23 15:30 Pulse Oximetry 97 05/17/23 17:15 Oxygen Delivery Me thod Nasal Cannula 05/17/23 17:15 Oxygen Flow Rate 3 05/17/23 17:15 MDM - Abdominal Pain Medical Decision Making Patient is a 68-year-old male here for complaints of constipation and no bowel movement over the last 6 days. His abdomen is soft and nontender. He has not complained of abdominal pain over the past 6 days. He has not had any vomiting. He is still passing flatulence. XR showing no abnormal gas patterns. At this time I do not have any concerns for acute intra-abdominal pathology for his constipation. He was found to have a large amount of firm stool to his rectal vault. Milk and molasses enema was performed here but patient did not hold long and evacuated contents within minutes with no stool. I attempted manual disimpaction but patient did not tolerate. He states he would like to go home with oral meds. I will send him with lactulose/mineral/milk of magnesia he can take when he gets home. Recommend MiraLAX and Colace. He can also try OTC suppositories or enemas as tolerated. Recommend follow-up with primary care this week if symptoms do not improve. Return ED precautions given. Lab Data 05/17/23 15:53 05/17/23 15:53 Labs/Radiology: Radiology Impressions Abdomen X-Ray 05/17/23 15:35 IMPRESSION: No acute findings. Laboratory Results WBC 11.11 10^3/uL (3.29-11.43) 05/17/23 15:53 RBC 3.91 10^6/uL (3.85-5.65) 05/17/23 15:53 Hgb 12.40 g/dL (11.27-16.99) 05/17/23 15:53 Hct 39.8 % (37-53) 05/17/23 15:53 MCV 101.8 fl (82-101) H 05/17/23 15:53 MCH 31.7 pg (27-33) 05/17/23 15:53 MCHC 31.2 g/dL (30-55) 05/17/23 15:53 RDW 12.8 % (12.1-15.1) 05/17/23 15:53 Plt Count 450 10^3/cmm (157-399) H 05/17/23 15:53 MPV 9.0 fL (7.4-10.4) 05/17/23 15:53 Neut % (Auto) 81.3 % 05/17/23 15:53 Lymph % (Auto) 7.9 % 05/17/23 15:53 [place] % (Auto) 5.9 % 05/17/23 15:53 Eos % (Auto) 4.1 % 05/17/23 15:53 Baso % (Auto) 0.6 % 05/17/23 15:53 Neut # (Auto) 9.02 10^3/uL (1.8-7.7) H 05/17/23 15:53 Lymph # (Auto) 0.9 10^3/uL (0.8-4.8) 05/17/23 15:53 [place] # (Auto) 0.7 10^3/uL (0.2-0.9) 05/17/23 15:53 Eos # (Auto) 0.5 10^3/uL (0.0-0.8) 05/17/23 15:53 Baso # (Auto) 0.1 10^3/uL (0.0-0.1) 05/17/23 15:53 Nucleated RBC % (auto) 0 % 05/17/23 15:53 Nucleated RBCs # 0.0 /100WBC 05/17/23 15:53 Sodium 138 mmol/L (136-145) 05/17/23 15:53 Potassium 4.3 mmol/L (3.5-5.1) 05/17/23 15:53 Chloride 98 mmol/L (98-107) 05/17/23 15:53 Carbon Dioxide 26 mmol/L (22-29) 05/17/23 15:53 Anion Gap 18.3 (5-19) 05/17/23 15:53 BUN 9 mg/dL (8-23) 05/17/23 15:53 Creatinine 0.7 mg/dL (0.7-1.2) 05/17/23 15:53 GFR Calculation 111.5 mL/min (90-130) 05/17/23 15:53 Glucose 114 mg/dL (65-115) 05/17/23 15:53 Calculated Osmolality 286 mOsm/kg (285-295) 05/17/23 15:53 Calcium 10.3 mg/dL (8.5-10.5) 05/17/23 15:53 Total Bilirubin 0.2 mg/dL (0.15-1.2) 05/17/23 15:53 AST 22 U/L (0-40) 05/17/23 15:53 ALT 15 U/L (0-41) 05/17/23 15:53 Alkaline Phosphatase 152 U/L (40-130) H 05/17/23 15:53 Total Protein 8.0 g/dL (6.6-8.7) 05/17/23 15:53 Albumin 3.7 g/dL (3.5-5.2) 05/17/23 15:53 Globulin 4.3 g/dL (1.3-4.6) 05/17/23 15:53 Lipase 14 U/L (13-60) 05/17/23 15:53 All radiology interpretation(s) finalized by discharge Discharge Plan Discharge Patient Disposition: Home Clinical Impression: Constipation Qualifiers: Constipation type: other constipation type Qualified Code(s): K59.09 - Other constipation Condition: Stable Prescriptions: No Action acetaminophen [Tylenol Extra Strength] 500 mg tablet 1,500 mg PO BID PRN (Reason: Pain) loratadine [Allergy Relief (loratadine)] 10 mg tablet 10 mg PO BID spironolactone 25 mg tablet 12.5 mg PO DAILY 90 Days Qty: 45 1RF (DME) portable oxygen concentrator See Rx Instructions .Route .MEDSUPPLY Qty: 1 0RF Rx Instructions: As directed tramadol 50 mg tablet 150 mg PO BID PRN (Reason: pain) 30 Days Qty: 180 0RF azithromycin 500 mg tablet 500 mg PO .every other day Qty: 36 1RF atorvastatin 80 mg tablet 80 mg PO DAILY isosorbide mononitrate 30 mg tablet extended release 24 hr 30 mg PO DAILY clopidogrel 75 mg tablet 75 mg PO DAILY omeprazole 40 mg capsule,delayed release(DR/EC) 40 mg PO DAILY albuterol sulfate 90 mcg/actuation HFA aerosol inhaler 2 inh inhalation Q6H PRN (Reason: Shortness Of Breath Or Wheezing) losartan 100 mg tablet 100 mg PO DAILY fluticasone propionate 50 mcg/actuation spray,suspension 2 spray intranasal DAILY glycopyrrolate 2 mg tablet 2 mg PO TID ezetimibe 10 mg tablet 10 mg PO DAILY Combivent Respimat 20-100 mcg/actuation mist 1 puff inhalation Q6H Trelegy Ellipta 100-62.5-25 mcg blister with device 1 inh inhalation DAILY Discharge Orders: Discharge ED (Routine); Ordered 05/17/23 Ordered By: Marta Arnold Referrals: Sha Ramires MD [Primary Care Provider] - Patient Instructions: Constipation - Adult, Constipation (DC) Activity Restrictions/Additional Instructions: As we discussed you can take the mixture given to you today when you get home to help with constipation. He may also begin taking a capful of MiraLAX twice daily with full glass of water as well as [id number] Colace stool softeners to help as well. Please follow-up with your primary care provider next week if symptoms do not improve. You need to return the emergency department for severe abdominal pain, vomiting, inability to pass gas or stool, fevers, or any other concerns you may have. Coding Level of Care Code ED Architect for Samantha Goss
[2023-05-17 15:27] VITALS: BP 138/75; PULSE 93; TEMP 36.6; O2SAT 93
[2023-05-17 15:30] VITALS: BP 138/88; PULSE 63; O2SAT 92
--- NOTE | 2023-05-17 15:35 | XRR_ITS ---
PROCEDURE INFORMATION: Exam: XR Abdomen Exam date and time: 05/17/2023 4:17 PM Age: 68 years old Clinical indication: Constipation; Additional info: Constipationsex TECHNIQUE: Imaging protocol: Radiologic exam of the abdomen. Views: 2 Views. Upright and supine views. COMPARISON: CT abdomen pelvis w con* [id number] 12/25/2019 9:14 AM FINDINGS: Gastrointestinal tract: Normal. No bowel dilation. Intraperitoneal space: Normal. No free air. Bones/joints: Unremarkable for age. Moderate colonic fecal material suggests constipation. XR/XR abdomen min 2V [id number] IMPRESSION: No acute findings.
[2023-05-17 16:02] LABS: Basophils # 0.1 10^3/uL (0.0-0.1); Basophils % 0.6 %; Eosinophils # 0.5 10^3/uL (0.0-0.8); Eosinophils % 4.1 %; Hematocrit 39.8 % (37-53); Lymphocytes # 0.9 10^3/uL (0.8-4.8); Lymphocytes % 7.9 %; Mean Corpuscular HGB Conc 31.2 g/dL (30-55); Mean Corpuscular Hemoglobin 31.7 pg (27-33); Mean Corpuscular Volume 101.8 fl (82-101); Monocytes # 0.7 10^3/uL (0.2-0.9); Monocytes % 5.9 %; Neutrophils # 9.02 10^3/uL (1.8-7.7); Neutrophils % 81.3 %; Nucleated Red Blood Cells % 0 %; Platelet Count 450 10^3/cmm (157-399); Red Blood Count 3.91 10^6/uL (3.85-5.65); Red Cell Distribution Width 12.8 % (12.1-15.1); White Blood Count 11.11 10^3/uL (3.29-11.43)
[2023-05-17 16:19] LABS: Alanine Aminotransferase 15 U/L (0-41); Albumin Level 3.7 g/dL (3.5-5.2); Alkaline Phosphatase 152 U/L (40-130); Anion Gap 18.3 (5-19); Aspartate Amino Transferase 22 U/L (0-40); Blood Urea Nitrogen 9 mg/dL (8-23); Calcium 10.3 mg/dL (8.5-10.5); Carbon Dioxide 26 mmol/L (22-29); Chloride 98 mmol/L (98-107); Globulin 4.3 g/dL (1.3-4.6); Glomerular Filtration Rate 111.5 mL/min (90-130); Glucose 114 mg/dL (65-115); Lipase 14 U/L (13-60); Osmolality Calculated 286 mOsm/kg (285-295); Potassium 4.3 mmol/L (3.5-5.1); Sodium 138 mmol/L (136-145); Total Bilirubin 0.2 mg/dL (0.15-1.2)
[2023-05-17 17:15] VITALS: PULSE 110; O2SAT 97
[2023-05-17 17:21] VITALS: BP 143/82
[2023-05-17] MEDS: magnesium hydroxide 30 mL UDC PO (17:25)
[2023-05-17] MEDS: mineral oil 30 mL UDC PO (17:25)
[2023-05-17] MEDS: lactulose oral liq 20 gm/30 mL UDC 30 GM PO (17:30)
== END 2023-05-17 18:34 | disposition home or self-care (01) ==
PROVIDERS: Emergency Provider Physician Assistant; PCP Family Medicine
DX: K59.09 Other constipation (principal); Z79.02 Long term (current) use of antithrombotics/antiplatelets; Z87.891 Personal history of nicotine dependence; E78.2 Mixed hyperlipidemia; J44.9 Chronic obstructive pulmonary disease, unspecified; I11.0 Hypertensive heart disease with heart failure; I50.9 Heart failure, unspecified
CPT/HCPCS: 36415; 74019; 80053; 83690; 85025; 99284

== ENCOUNTER 2025-02-22 03:38 | Inpatient (IN) | payer MEDICARE, SELFPAY ==
[2025-02-22] VITALS (15 sets, daily range): BP systolic 109–198; BP diastolic 60–90; PULSE 70–98; RESP 14–17; TEMP 36.7–36.8; O2SAT 93–100; BMI 21.7
--- NOTE | 2025-02-22 03:56 | ED_ITS ---
HPI - Abdominal Pain 2 General: Chief Complaint: Abdominal Pain Stated Complaint: right side pain Time Seen by Provider: 02/22/25 03:41 History of Present Illness: 69-year-old male presents emergency room with complaints of a new mass in the right side of the abdomen. No history of any trauma. He has been constipated recently no reports of vomiting denies dysuria urgency or frequency hematochezia melena hematemesis or coffee-ground emesis. Associated Symptoms: Reports nausea; Denies chills, dysuria, fever(s) and vomiting Related Data Home Medications ?Medication ?Instructions ?Recorded ?Confirmed acetaminophen 500 mg tablet 1,500 mg PO BID PRN Pain 0 06/20/19 11/06/23 (Tylenol Extra Strength) loratadine 10 mg tablet (Allergy 10 mg PO BID 03/10/22 11/06/23 Relief (loratadine)) albuterol sulfate 90 mcg/actuation 2 inh inhalation Q6 H PRN Shortness 05/17/23 11/06/23 aerosol inhaler Of Breath Or Wheezing fluticasone propionate 50 2 spray intranasal DAILY 11/06/23 mcg/actuation nasal spray,suspension Previous Rx's ?Medication ?Instructions ?Recorded portable oxygen concentrator #1 ea 11/06/23 doxycycline hyclate 100 mg tablet 100 mg PO BID #14 ta bs 11/10/23 Home oxygen continuous See Rx Instructions .Route 0 11/16/23 .COMPLEX #1 unit Inogen portable oxygen #1 ea 11/20/23 concentrator. prednisone 20 mg tablet 40 mg (2 x 20 mg) PO .Daily in 12/09/23 A.M. 5 days #10 tabs tramadol 50 mg tablet 150 mg (3 x 50 mg) PO BID AK N pain 12/30/23 30 days #180 tabs albuterol sulfate 90 mcg/actuation 2 puff inhalation Q ID #17 grams 02/11/24 aerosol inhaler amoxicillin 875 mg-potassium 1 tab PO BID PRN wheezing 10 days 02/11/24 clavulanate 125 mg tablet #20 tabs atorvastatin 80 mg tablet See Rx Instructions .Route 1 04/12/23 .COMPLEX #90 tabs clopidogrel 75 mg tablet See Rx Instructions .Route 1 04/12/23 .COMPLEX #90 tabs ezetimibe 10 mg tablet See Rx Instructions .Route 1 04/12/23 .COMPLEX #90 tabs fluticasone fur. 100 mcg-umeclid See Rx Instructions . Route 02/11/24 62.5 mcg-vilant 25 mcg .COMPLEX #60 ea inhalat.powder (Trelegy Ellipta) glycopyrrolate 2 mg tablet 2 mg PO TID 90 days #270 ta bs 02/11/24 ipratropium 20 mcg-albuterol 100 1 puff inhalation Q6H #4 grams 02/11/24 mcg/actuation mist for inhalation (Combivent Respimat) isosorbide mononitrate 30 mg See Rx Instructions .Rout e 02/11/24 tablet,extended release 24 hr .COMPLEX #90 tabs losartan 100 mg tablet See Rx Instructions .Route 1 04/12/23 .COMPLEX #90 tabs omeprazole 40 mg capsule,delayed See Rx Instructions . Route 02/11/24 release .COMPLEX #90 caps spironolactone 25 mg tablet 12.5 mg (1/2 x 25 mg) PO D AILY 90 02/11/24 days #45 tabs Allergies Allergy/AdvReac Type Severity Reaction Status Date / Time aspirin Allergy ALGY-Swell Verified 11/06/23 09:47 Lip/Tongue/Throat Review of Systems 2 Const: Denies: fever(s) or chills Card: Denies: chest pain Resp: Denies: dyspnea GI: Reports: abdominal pain and nausea; Denies: vomiting : Denies: dysuria, urinary frequency or urinary urgency Musc: Denies: neck pain or back pain Skin/Breast: Denies: rash PFSH ED 2 PFSH: Medical History Umbilical hernia Osteoporosis Medication management Vitamin D deficiency Prostate cancer screening Mixed hyperlipidemia Chronic back pain Chronic pain Sinusitis COPD (chronic obstructive pulmonary disease) Pulmonary nodule, right Colon polyps Xanthelasma GERD (gastroesophageal reflux disease) Pulmonary hypertension CHF (congestive heart failure) ASHD (arteriosclerotic heart disease) HTN (hypertension) Afib Skin cancer Surgical History H/O eye surgery Hx of cataract surgery Stented coronary artery Status post surgical removal of malignant neoplasm of skin Family History Mother Cancer Pancreatic Father COPD (chronic obstructive pulmonary disease) Sister Diabetes Brother Diabetes Social History Smoking and tobacco/nicotine status: former use of tobacco/nicotine Quit status (tobacco/nicotine): has quit using Year quit tobacco: Dec 26 2019 Former quit date comment: 2-3PPD x 50 years Second hand smoke exposure: Yes Alcohol intake: current Alcohol intake frequency: 0-2 Drinks per Day Alcohol type: beer Substance/Drug Use: never Caregiver/support person: Yes Lives independently: Yes Household members: none Marital status: Single service: Yes Current occupational status: disabled Pets and animals: Yes Do you think of yourself as: Straight/Heterosexual Current gender identity: Male Physical Exam 2 Const: GENERAL APPEARANCE: cooperative ORIENTATION/CONSCIOUSNESS: Yes awake HENMT: COMMON NORMALS: normocephalic, atraumatic and hearing grossly normal bilaterally HEAD & SCALP: normocephalic and atraumatic Resp: COMMON NORMALS: normal respiratory effort, No retractions, No use of accessory muscles and clear to auscultation bilaterally AUSCULTATION: clear to auscultation bilaterally Cardio: COMMON NORMALS: regular rate, regular rhythm and No murmurs present (Cardio) RATE: regular rate RHYTHM: regular rhythm GI: COMMON NORMALS: No hepatosplenomegaly present AUSCULTATION: Yes normoactive bowel sounds PALPATION: Yes Tenderness to palpation present (GI) (Tenderness to light touch on the right side of the abdomen.), No Guarding due to palpation present (GI) and Yes No hepatosplenomegaly present OTHER: Easily reducible umbilical hernia noted Extremity: COMMON NORMALS: normal to inspection, capillary refill normal, no clubbing, cyanosis or edema, no calf tenderness and no pedal edema Skin: COMMON NORMALS: no rashes or lesions noted GENERAL SKIN EXAM: no rashes or lesions noted Course 2 Vital Signs: Vital signs: Vital Signs Temperature 98.1 F 02/22/25 03:39 Pulse Rate 70 02/22/25 04:42 Respiratory Rate 17 02/22/25 03:39 Blood Pressure 156/76 02/22/25 04:42 Pulse Oximetry 100 02/22/25 04:42 Oxygen Delivery Me thod Nasal Cannula 02/22/25 04:42 Oxygen Flow Rate 3 02/22/25 04:42 MDM - Abdominal Pain Medical Decision Making Medical decision making Social determinants: custodial resident I reviewed the patient's medical record. I reviewed the patient's current home meds Alternate historians: EMS, Differential diagnosis abdominal pain, constipation, peptic ulcer disease, acute cholecystitis, colitis Lab Review: Leukocytosis with left shift, with normal liver functions and lipase Imaging: CT shows acute cholecystitis with stone lodged in the neck of the gallbladder Assessment of risk: Level of risk: High Hospitalization considerations: Patient admitted for acute cholecystitis Reexamination: Continued right upper quadrant abdominal pain Assessment and plan: Consult to Dr. Phoenix on-call for surgery. Patient felt to be high surgical risk. Dr. Phoenix asked that we admit to hospitalist consult him. He thinks patient would be a good candidate for cholecystectomy tube to be placed by radiology. He will assess and discussed with radiology. Medical Records I reviewed the patient's medical records. Lab Data I reviewed the patient's lab results. 02/22/25 04:35 02/22/25 04:35 Labs/Radiology: Radiology Impressions Abdomen/Pelvis CT 02/22/25 04:04 IMPRESSION: 1. Distended gallbladder with gallbladder wall thickening, consistent with acute cholecystitis. Surgical evaluation recommended. Mildly impacted stone in the gallbladder neck. 2. Moderate fecal retention, correlate for constipation. 3. Diverticulosis, without acute diverticulitis. No small bowel obstruction. No free air. 4. Fat containing left inguinal hernia. 5. No nephrolithiasis, hydronephrosis, or obstructive uropathy. Laboratory Results WBC 13.05 10^3/uL (3.29-11.43) H 02/22/25 04:35 RBC 3.81 10^6/uL (3.85-5.65) L 02/22/25 04:35 Hgb 12.30 g/dL (11.27-16.99) 02/22/25 04:35 Hct 38.3 % (37-53) 02/22/25 04:35 MCV 100.5 fl (82-101) 02/22/25 04:35 MCH 32.3 pg (27-33) 02/22/25 04:35 MCHC 32.1 g/dL (30-55) 02/22/25 04:35 RDW 11.9 % (12.1-15.1) L 02/22/25 04:35 Plt Count 252 10^3/cmm (157-399) 02/22/25 04:35 MPV 9.3 fL (7.4-10.4) 02/22/25 04:35 Neut % (Auto) 79.8 % 02/22/25 04:35 Lymph % (Auto) 8.0 % 02/22/25 04:35 [place] % (Auto) 9.9 % 02/22/25 04:35 Eos % (Auto) 1.7 % 02/22/25 04:35 Baso % (Auto) 0.4 % 02/22/25 04:35 Neut # (Auto) 10.41 10^3/uL (1.8-7.7) H 02/22/25 04:35 Lymph # (Auto) 1.1 10^3/uL (0.8-4.8) 02/22/25 04:35 [place] # (Auto) 1.3 10^3/uL (0.2-0.9) H 02/22/25 04:35 Eos # (Auto) 0.2 10^3/uL (0.0-0.8) 02/22/25 04:35 Baso # (Auto) 0.1 10^3/uL (0.0-0.1) 02/22/25 04:35 Nucleated RBC % (auto) 0 % 02/22/25 04:35 Nucleated RBCs # 0.0 /100WBC 02/22/25 04:35 Sodium 137 mmol/L (136-145) 02/22/25 04:35 Potassium 4.5 mmol/L (3.5-5.1) 02/22/25 04:35 Chloride 97 mmol/L (98-107) L 02/22/25 04:35 Carbon Dioxide 30 mmol/L (22-29) H 02/22/25 04:35 Anion Gap 14.5 (5-19) 02/22/25 04:35 BUN 8 mg/dL (8-23) 02/22/25 04:35 Creatinine 0.5 mg/dL (0.7-1.2) L 02/22/25 04:35 GFR Calculation Not Reportable 02/22/25 04:35 Glucose 164 mg/dL (65-115) H 02/22/25 04:35 Calculated Osmolality 286 mOsm/kg (285-295) 02/22/25 04:35 Calcium 10.3 mg/dL (8.5-10.5) 02/22/25 04:35 Total Bilirubin 0.3 mg/dL (0.15-1.2) 02/22/25 04:35 AST 13 U/L (0-40) 02/22/25 04:35 ALT 15 U/L (0-41) 02/22/25 04:35 Alkaline Phosphatase 100 U/L (40-130) 02/22/25 04:35 Total Protein 7.5 g/dL (6.6-8.7) 02/22/25 04:35 Albumin 4.3 g/dL (3.5-5.2) 02/22/25 04:35 Globulin 3.2 g/dL (1.3-4.6) 02/22/25 04:35 Lipase 19 U/L (13-60) 02/22/25 04:35 All radiology interpretation(s) finalized by discharge Discharge Plan Discharge Patient Disposition: Admitted As Inpatient Clinical Impression: Acute calculous cholecystitis, COPD (chronic obstructive pulmonary disease), Chronic respiratory failure with hypoxia, Afib, CHF (congestive heart failure), Pulmonary hypertension Condition: Stable Coding Level of Care Code ED Paper Sales Representative for Samantha Goss
--- NOTE | 2025-02-22 04:04 | CTR_ITS ---
PROCEDURE INFORMATION: Exam: CT Abdomen And Pelvis Without Contrast Exam date and time: 02/22/2025 4:15 AM Age: 69 years old Clinical indication: Abdominal pain TECHNIQUE: Imaging protocol: Computed tomography of the abdomen and pelvis without contrast. Radiation optimization: All CT scans at this facility use at least one of these dose optimization techniques: automated exposure control; mA and/or kV adjustment per patient size (includes targeted exams where dose is matched to clinical indication); or iterative reconstruction. COMPARISON: CT abdomen pelvis w con* [id number] 12/25/2019 9:14 AM RADIATION DOSE METRICS: Total DLP (mGy-cm): 374.13 FINDINGS: Lungs: Pulmonary fibrosis at the right lung base. Liver: Calcified hepatic granulomas. Gallbladder and biliary ducts: Distended gallbladder with gallbladder wall thickening, consistent with acute cholecystitis. Surgical evaluation recommended. Mildly impacted stone in the gallbladder neck. Pancreas: Normal. No ductal dilation. Spleen: Multiple calcified splenic granulomas. Adrenal glands: Normal. No mass. Kidneys and ureters: No nephrolithiasis, hydronephrosis, or obstructive uropathy. Stomach and bowel: Moderate fecal retention, correlate for constipation. Diverticulosis, without acute diverticulitis. No small bowel obstruction. No free air. Appendix: No evidence of appendicitis. Intraperitoneal space: See Stomach and bowel finding. Vasculature: Atherosclerotic changes of the aorta. Lymph nodes: Unremarkable. No enlarged lymph nodes. Urinary bladder: Unremarkable as visualized. Reproductive: Unremarkable as visualized. Bones/joints: Degenerative changes of the spine. Soft tissues: Fat containing left inguinal hernia. CT/CT abdomen pelvis con [id number] IMPRESSION: 1. Distended gallbladder with gallbladder wall thickening, consistent with acute cholecystitis. Surgical evaluation recommended. Mildly impacted stone in the gallbladder neck. 2. Moderate fecal retention, correlate for constipation. 3. Diverticulosis, without acute diverticulitis. No small bowel obstruction. No free air. 4. Fat containing left inguinal hernia. 5. No nephrolithiasis, hydronephrosis, or obstructive uropathy.
[2025-02-22 04:41] LABS: Hematocrit 38.3 % (37-53); Hemoglobin 12.30 g/dL (11.27-16.99); Mean Corpuscular HGB Conc 32.1 g/dL (30-55); Mean Corpuscular Hemoglobin 32.3 pg (27-33); Mean Corpuscular Volume 100.5 fl (82-101); Nucleated Red Blood Cells % 0 %; Platelet Count 252 10^3/cmm (157-399); Red Blood Count 3.81 10^6/uL (3.85-5.65); White Blood Count 13.05 10^3/uL (3.29-11.43)
[2025-02-22 05:02] LABS: Alanine Aminotransferase 15 U/L (0-41); Albumin Level 4.3 g/dL (3.5-5.2); Alkaline Phosphatase 100 U/L (40-130); Anion Gap 14.5 (5-19); Aspartate Amino Transferase 13 U/L (0-40); Blood Urea Nitrogen 8 mg/dL (8-23); Calcium 10.3 mg/dL (8.5-10.5); Carbon Dioxide 30 mmol/L (22-29); Chloride 97 mmol/L (98-107); Globulin 3.2 g/dL (1.3-4.6); Glucose 164 mg/dL (65-115); Lipase 19 U/L (13-60); Osmolality Calculated 286 mOsm/kg (285-295); Potassium 4.5 mmol/L (3.5-5.1); Sodium 137 mmol/L (136-145); Total Protein 7.5 g/dL (6.6-8.7)
[2025-02-22] MEDS: piperacillin-tazobactam 3.375 GM in sodium chloride 0.9% (plus) 50 ML IV ×3 (05:09→21:30)
[2025-02-22 05:23] LABS: Lactic Sepsis W/Reflex 1.3 mmol/L (0.5-2.2)
--- OUTSIDE RECORDS SUMMARY | 2025-02-22 05:37 | XMS_ITS | Encounter Summary ---
Author Organization [facility] Address [address] [place] [address] Care Team Providers Care Certified Scrub Tech Name Role Phone Butch Voss MD, Andrew Smith Primary Care Provider Encounter Details Date Type Department Care Team (Late st Contact Info) Description 02/20/2016 Ancillary Orders [facility] Admitting [address] [place] [id number] Cindi Ohara, HARDWARE SUPPLIES SALES REPRESENTATIVE [address] [place] [address] Acute back pain, unspecified back location, unspecified back pain laterality Social History Tobacco Use Types Packs/Day Years Used Date Smoking Tobacco: Every Day Cigarettes 0.5 40 Smokeless Tobacco: Never Alcohol Use Standard Drinks/Week Comments Yes 0 (1 standard drink = 0.6 oz pur e alcohol) Occasional/ on week ends Sex and Gender Information Value Date Recorded Sex Assigned at Not on file Legal Sex Male 3:47 AM CHIEF CONTRACT OFFICER Gender Identity Not on file Sexual Orientation Not on file documented as of this encounter Plan of Treatment Not on file documented as of this encounter Results * XR THORACIC SPINE 3 VW (02/20/2016 10:44 AM CHIEF CONTRACT OFFICER) Anatomical Region Laterality Modality Spine Computed Radiogr aphy 02/20/2016 10:4 5 AM CHIEF CONTRACT OFFICER Impressions 02/20/2016 11:37 AM CHIEF CONTRACT OFFICER IMPRESSION: Please see below. Exam: XR THORACIC SPINE 3 VW Date/Time of Exam: 02/20/2016 10:44 AM Reason For Exam: Acute back pain, unspecified back location, unspecified back pain laterality. Findings: Alignment is normal. Osteopenia is present with mild multilevel degenerative changes. There is a mild midthoracic compression fracture, probably T7. IMPRESSION: Mild mid thoracic compression fracture, probably T7, age unknown. Mild multilevel degenerative changes. Narrative Procedure Note Prince Brennan MD - 02/20/2016 IMPRESSION IMPRESSION: Please see below. Exam: XR THORACIC SPINE 3 VW Date/Time of Exam: 02/20/2016 10:44 AM Reason For Exam: Acute back pain, unspecified back location, unspecified back pain laterality. Findings: Alignment is normal. Osteopenia is present with mild multilevel degenerative changes. There is a mild midthoracic compression fracture, probably T7. IMPRESSION: Mild mid thoracic compression fracture, probably T7, age unknown. Mild multilevel degenerative changes. Cindi Ohara [facility] DIAGNOSTIC IMAGING ORDERABL ES Final Result * XR CERVICAL SPINE 2 OR 3 VIEWS (02/20/2016 10:41 AM CHIEF CONTRACT OFFICER) Anatomical Region Laterality Modality Spine Computed Radiogr aphy 02/20/2016 10:4 4 AM CHIEF CONTRACT OFFICER Impressions 02/20/2016 11:35 AM CHIEF CONTRACT OFFICER IMPRESSION: Please see below. Exam: XR CERVICAL SPINE 2 OR 3 VIEWS Date/Time of Exam: 02/20/2016 10:41 AM Reason For Exam: Acute back pain, unspecified back location, unspecified back pain laterality. Findings: Alignment is normal. No subluxation or fracture is seen. Mild osteopenia and mild degenerative changes are seen. Impression: Mild degenerative changes. Narrative Procedure Note Prince Brennan MD - 02/20/2016 IMPRESSION IMPRESSION: Please see below. Exam: XR CERVICAL SPINE 2 OR 3 VIEWS Date/Time of Exam: 02/20/2016 10:41 AM Reason For Exam: Acute back pain, unspecified back location, unspecified back pain laterality. Findings: Alignment is normal. No subluxation or fracture is seen. Mild osteopenia and mild degenerative changes are seen. Impression: Mild degenerative changes. Cindi Ohara [facility] DIAGNOSTIC IMAG[facility] ORDERABL ES Final Result documented in this encounter Visit Diagnoses Diagnosis Acute back pain, unspecified back location, unspecified back pain laterality Acute back pain, unspecified back location, unspecified back pain laterality Acute back pain, unspecified back location, unspecified back pain laterality documented in this encounter Care Teams Certified Scrub Tech Relationship Specialty Start Date End Date Andrew Rae Jr., MD [address] [place] [address] PCP - General Family Practice 08/11/18 documented as of this encounter
--- OUTSIDE RECORDS SUMMARY | 2025-02-22 05:37 | XMS_ITS | Clinical Summary ---
Author Organization [facility] Address [address] [place] [address] Phone Care Team Providers Care Carrier Loader Name Role Phone Butch Voss MD, Andrew Smith Primary Care Provider Allergies Active Allergy Reactions Criticality Noted Date Comments Aspirin Swelling Low 03/11/2012 Medications albuterol (PROVENTIL,VENTOL IN) 2.5 mg /3 mL (0.083 %) Inhalation Nebu Take 2.5 mg by inhalation every 6 hours as needed. Active albuterol 90 mcg/Actuation Inhalation HFAA inhaler Take 2 Puffs by inhalation every 6 hours as needed. Active dextromethorphan- guaiFENesin (MUCINEX DM) 30-600 mg Oral Tb12 Take 1 Tab by mouth every 12 hours. Active pseudoephedrine-g uaiFENesin (MUCINEX D) 60-600 mg Oral Tb12 Take 1 Tab by mouth 2 times daily. Active guaiFENesin SR (MUCINEX) 600 mg Oral tablet Take 600 mg by mouth 2 times daily. Active predniSONE (DELTASONE) 20 mg Oral tablet Take 1 Tab by mouth 2 times daily. 8 Tab None 2 Active doxycycline hyclate (VIBRAMYCIN) 100 mg Oral tablet Take 1 Tab by mouth 2 times daily. 20 Tab None 2 Active acetaminophen (TYLENOL ARTHRITIS) 650 mg Extended Release tablet Take 650 mg by mouth every 6 hours as needed for Pain. Active atorvastatin (LIPITOR) 80 mg tablet Take 80 mg by mouth late in the day. Active clorazepate (TRANXENE) 3.75 mg tablet Take 3.75 mg by mouth 2 times daily. Active docusate sodium (COLACE) 100 mg capsuleIndication s:Take 2 capsules by mouth at bedtime for constipation Take 100 mg by mouth daily. Active dipyridamole (PERSANTINE) 25 mg tablet Take 25 mg by mouth 3 times daily. Active isosorbide mononitrate (IMDUR) 30 mg Extended Release 24 hour tablet Take 30 mg by mouth late in the day. Active furosemide (LASIX) 20 mg tablet Take 20 mg by mouth daily. Active loratadine (CLARITIN) 10 mg tablet Take 10 mg by mouth daily. Active losartan (COZAAR) 50 mg tablet Take 50 mg by mouth daily. Active metoprolol tartrate (LOPRESSOR) 25 mg tablet Take 25 mg by mouth 2 times daily. Active nitroglycerin (NITROSTAT) 0.4 mg Tablet, Sublingual Place 0.4 mg under tongue every 5 minutes as needed for Chest Pain. Active omeprazole (PriLOSEC) 20 mg Capsule, Delayed Release(E.C.) Take 20 mg by mouth daily. Active clopidogrel (PLAVIX) 75 mg Tablet Take 75 mg by mouth daily. Active Vit 18-Mvbf-NX-DSS (ADVANCED ) 90-1-50 mg Tablet Take 1 Tablet by mouth daily. Active budesonide-formot shirley (SYMBICORT) 160-4.5 mcg/actuation HFA Aerosol Inhaler Take 2 Puffs by inhalation 2 times daily. Active traMADol (ULTRAM) 50 mg tabletIndications :Take two tablets by mouth every 8 hours as needed for pain Take 50 mg by mouth every 6 hours as needed for Pain. Active cyanocobalamin (VITAMIN B-12) 100 mcg tabletIndications :Take two tabs by mouth one a daily for supplement. Take 1,000 mcg by mouth daily. 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 COPD (chronic obstructive pulmonary disease) 01/2017 Coronary artery disease invo lving [place] coronary artery of [place] heart without angina pectoris 06/07/2016 Essential hypertension 06/07/2016 Social History Tobacco Use Types Packs/Day Years Used Date Smoking Tobacco: Every Day Cigarettes 0.5 40 Smokeless Tobacco: Never Tobacco Cessation:Ready to Q uit: Yes; Counseling Given: Yes Alcohol Use Standard Drinks/Week Comments Yes 0 (1 standard drink = 0.6 oz pur e alcohol) Occasional/ on week ends Sex and Gender Information Value Date Recorded Sex Assigned at Not on file Legal Sex Male 3:47 AM DOCUMENT MANAGEMENT CONSULTANT Gender Identity Not on file Sexual Orientation Not on file Last Filed Vital Signs Vital Sign Reading Time Taken Comments Blood Pressure 138/81 09/15/2018 11:42 AM CDT Pulse 82 09/15/2018 11:42 AM CDT Temperature 36.9 C (98.5 F) 09/15/2018 11:37 AM CDT Respiratory Rate 18 09/15/2018 11:42 AM CDT Oxygen Saturation 98% 09/15/2018 11:42 AM CDT Inhaled Oxygen Concentration - - Weight 71.7 kg (158 lb) 09/15/2018 9:55 AM CDT Height 175.3 cm (5' 9 ) 09/15/2018 9:55 AM CDT Body Mass Index 23.33 09/15/2018 9:55 AM CDT Plan of Treatment Health Maintenance Due Date Last Done Comments DTAP/TDAP/TD VACCINES (1 - Tdap) 1972 PNEUMOCOCCAL VACCINE 50+ YEARS (1 of 2 - PCV) 05/08/18 73 COLORECTAL SCREENING 1998 Colorectal Cancer Screening 1998 FIT-DNA Q 3 years 1998 FIT/FOBT Q 1 year 1998 Flex Sig/CT Colonography Q 5 years 1998 RSV VACCINE (60+ or ) (1 - Risk 50-74 years 1-dose series) 2003 ZOSTER VACCINE (1 of 2) 2003 INFLUENZA VACCINE (#1) 2024 Medical Devices Implanted Type Area Social Services Aide Device Identifier Shelf Expiration Date Model / Serial / Lot Lens Io Bi-Aspheric Softechd+22.0d - [id number] Implanted:Qty: 1 on 08/11/2018 by Michael Lozano MD at [facility] Eye Right: Eye [employer] 04/06/2023 SOFTECHD+22 .0D / [id number] / [id number] Lens Io Bi-Aspheric Softechd+22.0d - [id number] Implanted:Qty: 1 on 09/15/2018 by Michael Lozano MD at [facility] Eye Left: Eye [employer] 04/06/2023 SOFTECHD+22 .0D / [id number] / [id number] Insurance MEDICAID [facility] Advance Directives For more information, please contact: [phone] * Full Code (Latest Code Status on File) Date Activated Date Inactivated Comments 09/15/2018 9:52 AM 09/15/2018 1:51 PM * Full Code Date Activated Date Inactivated Comments 08/11/2018 12:54 PM 08/11/2018 3:54 PM Care Teams Carrier Loader Relationship Specialty Start Date End Date Andrew Rae Jr., MD [address] [place] [id number] PCP - General Family Practice 08/11/18
--- OUTSIDE RECORDS SUMMARY | 2025-02-22 05:37 | XMS_ITS | Clinical Summary ---
Author Organization [facility] Address [address] [place] [address] Care Team Providers Care Cold Storage Supervisor Name Role Phone Arthur Arnold MD Primary Care Provider [phone] Active Problems Problem Noted Date Diagnosed Date Bronchiectasis 02/16/2025 Vitamin D deficiency 02/16/2025 Pulmonary hypertension 10/06/2023 Chronic combined systolic an d diastolic congestive heart failure 10/06/2023 Chronic respiratory failure with hypoxia 024 Gastroesophageal reflux disease without esophagi tis 10/06/2023 Chronic back pain greater than 3 months duration 10/06/2023 Slow transit constipation 10/06/2023 Chronic allergic rhinitis 10/06/2023 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/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 COPD (chronic obstructive pulmonary disease) 01/2017 Coronary artery disease invo lving [place] coronary artery of [place] heart without angina pectoris 06/07/2016 Essential hypertension 06/07/2016 Immunizations Immunization Administration Dates Next Due Moderna SARS-CoV-2 (SPIKEVAX ) Fall Seasonal (12+ y.o.) 01/29/2023 Moderna SARS-CoV-2 Bivalent Booster (6+ y.o.) 01/30/2022 Moderna SARS-CoV-2 Vaccination ,02/12/2021,06/21/2020,05/24 Tdap (BOOSTRIX, ADACEL) 02/27/2016 influenza, high-dose, steven valent (FLUZONE HIGH-DOSE) 01/29/2023,01/16/2022 influenza, injectable, quadr ivalent, preservative free (AFLURIA/FLUARIX/FLULAVAL/FLUZONE) 05/31/2021 influenza, injectable, triva lent (AFLURIA/FLUZONE MDV) 03/03/2014,03/02/2013 pneumococcal polysaccharide PPV 23 (PNEUMOVAX 23) 11/11/2017 zoster recombinant (SHINGRIX) 02/04/2019, 019,11/11/2017 Social History Tobacco Use Types Packs/Day Years Used Date Smoking Tobacco: Unknown Tobacco Cessation:Counseling Given: Not Answered PHQ-2 Answer Date Recorded PHQ-2 Score 0 10/06/2023 Sex and Gender Information Value Date Recorded Sex Assigned at Not on file Legal Sex Male 9:27 AM CDT Gender Identity Not on file Sexual Orientation Not on file Last Filed Vital Signs Vital Sign Reading Time Taken Comments Blood Pressure 114/60 10/06/2023 4:00 PM CDT Pulse 76 10/06/2023 4:00 PM CDT Temperature 36.9 C (98.5 F) 10/06/2023 4:00 PM CDT Respiratory Rate 17 10/06/2023 4:00 PM CDT Oxygen Saturation 97% 10/06/2023 4:00 PM CDT Inhaled Oxygen Concentration - - Weight 66.7 kg (147 lb) 10/06/2023 4:00 PM CDT Height - - Body Mass Index - - Plan of Treatment Upcoming Encounters Date Type Department Care Team (Late st Contact Info) Description 03/07/2025 9:45 AM CASINO BANKER External Patient Visit [facility] Hein - Primary Care [address] [place] [address] Arthur Arnold MD [address] [place] [address] Health Maintenance Due Date Last Done Comments Medicare Annual Wellness 1955 Colonoscopy 1998 RSV 60+ (1 - Risk 50-74 years 1-dose series) 2003 Pneumococcal Vaccine: 50+ Years (2 of 2 - PCV) 11/11/2018 11/11/2017 Influenza Vaccination (#1) 10/28/202401/29, 01/16/2022, 05/31/2021, Additional history exists COVID-19 Vaccine ( season) 2024 01/29/2023, 01/30/2022, 07/22/2021, Additional history exists Td, Tdap Vaccines Adult 02/26/2026 02/27/2016 Shingrix (ZOSTER RECOMBINANT) Completed 02/04/2019, 12/03/2018, 11/11/2017 HIB Vaccines Aged Out No longer eligi ble based on patient's age to complete this topic HPV Vaccines Aged Out No longer eligi ble based on patient's age to complete this topic Hepatitis A Vaccines Aged Out No long er eligible based on patient's age to complete this topic Hepatitis B Vaccines Aged Out No long er eligible based on patient's age to complete this topic IPV Vaccines Aged Out No longer eligi ble based on patient's age to complete this topic Meningococcal Vaccines Aged Out No lo nger eligible based on patient's age to complete this topic RSV Mab Nirsevimab (Beyfortus) <20 months Aged Out No longer eligibl e based on patient's age to complete this topic Rotavirus Vaccines Aged Out No longer eligible based on patient's age to complete this topic Insurance MEDICARE Care Teams Cold Storage Supervisor Relationship Specialty Start Date End Date Arthur Arnold MD [address] [facility] [address] [place] [address] PCP - General Internal Medicine 10/06/23
--- OUTSIDE RECORDS SUMMARY | 2025-02-22 05:37 | XMS_ITS | Encounter Summary ---
Author Organization [facility] Address [address] [place] [address] Care Team Providers Care Geek Squad Agent Name Role Phone Butch Voss MD, Andrew Smith Primary Care Provider Reason for Referral * PET Scan (Urgent) - Closed Specialty Diagnoses / Procedures Referred By George pineda Referred To Contact Radiology Diagnoses Lung nodule Procedures PET TUMOR IMG W CT SKL BSE MID THG Melina Lockett CRNP [address] [place] [address] Phone: tel: fax: [facility] Nuclear Medicine [address] [place] [address] Phone: tel: fax: Referral ID Status Reason Start Date Expiration Date Visits Requested Visits Authorized [id number] Closed Interventional Scheduling (SGF) 02/10/2019 03/12/2019 1 1 E CLEANER Encounter Details Date Type Department Care Team (Late st Contact Info) Description 02/08/2019 Ancillary Orders [facility] Pre-Registration [place] CALL TO MAKE APPOINTMENT ONLY [address] [place] [address] Melina Lockett CRNP [address] [place] [address] [place] lesion; Lung nodule Social History Tobacco Use Types Packs/Day Years Used Date Smoking Tobacco: Every Day Cigarettes 0.5 40 Smokeless Tobacco: Never Alcohol Use Standard Drinks/Week Comments Yes 0 (1 standard drink = 0.6 oz pur e alcohol) Occasional/ on week ends Sex and Gender Information Value Date Recorded Sex Assigned at Not on file Legal Sex Male 3:47 AM GRAVE CLEANER Gender Identity Not on file Sexual Orientation Not on file documented as of this encounter Plan of Treatment Not on file documented as of this encounter Results * PET TUMOR IMG W CT SKL BSE MID THG (02/23/2019 8:40 AM GRAVE CLEANER) Anatomical Region Laterality Modality Nuclear Medicine 02/23/2019 8:40 AM GRAVE CLEANER Impressions 02/23/2019 10:51 AM GRAVE CLEANER IMPRESSION: Abnormal examination. 1. Pulmonary findings are consistent with inflammatory or neoplastic etiologies. Consider histologic evaluation of the lesion at the lateral basal right costophrenic angle if clinically indicated. 2. Metastatic involvement of a left upper lobe subcentimeter nodular density cannot be excluded although calcified granulomas are present in both lungs. 3. No other strong evidence for metastatic involvement. Narrative 02/23/2019 10:51 AM GRAVE CLEANER Radionuclide PET Metabolic Tumor Imaging with CT Attenuation Correction and Anatomic Localization from Skull Base to Mid Thigh: Radiopharmaceutical: [id number] Dose: 14.0 mCi left arm IV Time of Injection: 0700 hrs BMI: Not available/71.7 kg Clinical Indication: Initial treatment strategy to evaluate enlarging pulmonary nodule for staging examination FDG ([id number]) PET imaging was performed at 0744 hrs approximately 44 minutes following intravenous infusion of the radiopharmaceutical agent using an integrated 16-slice PET/CT scanner. A noncontrast CT scan was performed for attenuation correction of PET data and for anatomic localization. No contrast was administered. Imaging was performed from the skull base to mid thigh levels with subsequent reconstruction of full trunk, orthogonal view slices in transverse, sagittal, and coronal projections which were reviewed along with dynamic multiimage planar and non attenuation corrected sagittal views. Blood glucose at the time of tracer injection was 113 mg/dl with normal biodistribution of tracer. The quality of this examination is acceptable with regards to count density, processed images, data display and lack of important artifacts (including but not limited to motion and attenuation artifacts). No previous PET/CT examination. Head/Neck: No abnormality observed Thorax: Mediastinal blood pool maximum SUV is 2.51. No pathologic lymphadenopathy is identified. There is calcification of lymph node basins. Reticular density is present in the right lung base with greater consolidation observed in the lateral costophrenic gutter. This density demonstrates focally increased metabolic activity with a maximal SUV value of 3.76. An additional peripheral focus of increased metabolic activity within this region is observed on CT series 3 slice 161 with a maximum SUV value of 2.64. A nodular density at the minor fissure (slice 143) measuring 8.9 mm demonstrates a maximum SUV value of 0.55 compared to adjacent normal lung of 0.48. Well-defined nodular density measuring 8 mm in the left upper lobe anteriorly demonstrates mild increase of metabolic activity in the maximum SUV value of 0.83. Additional air regular subpleural thickening is present in the right lung with a focus at slice 111 demonstrating a maximum SUV value of 1.28. An occasional calcified subcentimeter nodule is present in both lungs. Abdomen/Pelvis: Liver maximum SUV is 2.67. Both adrenal glands appear normal. No lymphadenopathy. No abnormal focus of metabolic activity is identified in solid organs or other soft tissue structures. Musculoskeletal: Hypertrophic/degenerative changes are present in the spine. An occasional tiny sclerotic focus is observed one in the right humeral head and the other the left superior acetabulum with no associated focal increase of metabolic activity in these foci or elsewhere in muscle or bone. Procedure Note Gigi Bernabe MD - 02/23/2019 Radionuclide PET Metabolic Tumor Imaging with CT Attenuation Correction and Anatomic Localization from Skull Base to Mid Thigh: Radiopharmaceutical: [id number] Dose: 14.0 mCi left arm IV Time of Injection: 0700 hrs BMI: Not available/71.7 kg Clinical Indication: Initial treatment strategy to evaluate enlarging pulmonary nodule for staging examination FDG ([id number]) PET imaging was performed at 0744 hrs approximately 44 minutes following intravenous infusion of the radiopharmaceutical agent using an integrated 16-slice PET/CT scanner. A noncontrast CT scan was performed for attenuation correction of PET data and for anatomic localization. No contrast was administered. Imaging was performed from the skull base to mid thigh levels with subsequent reconstruction of full trunk, orthogonal view slices in transverse, sagittal, and coronal projections which were reviewed along with dynamic multiimage planar and non attenuation corrected sagittal views. Blood glucose at the time of tracer injection was 113 mg/dl with normal biodistribution of tracer. The quality of this examination is acceptable with regards to count density, processed images, data display and lack of important artifacts (including but not limited to motion and attenuation artifacts). No previous PET/CT examination. Head/Neck: No abnormality observed Thorax: Mediastinal blood pool maximum SUV is 2.51. No pathologic lymphadenopathy is identified. There is calcification of lymph node basins. Reticular density is present in the right lung base with greater consolidation observed in the lateral costophrenic gutter. This density demonstrates focally increased metabolic activity with a maximal SUV value of 3.76. An additional peripheral focus of increased metabolic activity within this region is observed on CT series 3 slice 161 with a maximum SUV value of 2.64. A nodular density at the minor fissure (slice 143) measuring 8.9 mm demonstrates a maximum SUV value of 0.55 compared to adjacent normal lung of 0.48. Well-defined nodular density measuring 8 mm in the left upper lobe anteriorly demonstrates mild increase of metabolic activity in the maximum SUV value of 0.83. Additional air regular subpleural thickening is present in the right lung with a focus at slice 111 demonstrating a maximum SUV value of 1.28. An occasional calcified subcentimeter nodule is present in both lungs. Abdomen/Pelvis: Liver maximum SUV is 2.67. Both adrenal glands appear normal. No lymphadenopathy. No abnormal focus of metabolic activity is identified in solid organs or other soft tissue structures. Musculoskeletal: Hypertrophic/degenerative changes are present in the spine. An occasional tiny sclerotic focus is observed one in the right humeral head and the other the left superior acetabulum with no associated focal increase of metabolic activity in these foci or elsewhere in muscle or bone. IMPRESSION: Abnormal examination. 1. Pulmonary findings are consistent with inflammatory or neoplastic etiologies. Consider histologic evaluation of the lesion at the lateral basal right costophrenic angle if clinically indicated. 2. Metastatic involvement of a left upper lobe subcentimeter nodular density cannot be excluded although calcified granulomas are present in both lungs. 3. No other strong evidence for metastatic involvement. us Melina RENO PE ORDERABLES Final Result documented in this encounter Visit Diagnoses Diagnosis [place] lesion Other nonspecific abnormal finding of lung field Lung nodule Solitary pulmonary nodule Lung nodule Solitary pulmonary nodule documented in this encounter Care Teams Geek Squad Agent Relationship Specialty Start Date End Date Andrew Rae Jr., MD [address] [place] [address] PCP - General Family Practice 08/11/18 documented as of this encounter
--- OUTSIDE RECORDS SUMMARY | 2025-02-22 05:37 | XMS_ITS | Clinical Summary ---
Author Organization [facility] Address [address] [facility] Attn: Epic Prelude ADT [place] [address] Care Team Providers Care Office Engineer Name Role Phone Butch Voss MD, Andrew Smith Primary Care Provider Allergies Active Allergy Reactions Criticality Noted Date Comments Aspirin Swelling Low 03/11/2012 Medications dipyridamole (PERSANTINE) 25 mg tablet Take 25 mg by mouth 3 times daily. 7 Active traMADoL (ULTRAM) 50 mg tablet Take 50 mg by mouth every 6 hours as needed for Pain. 7 Active clopidogreL (PLAVIX) 75 mg Tablet Take 75 mg by mouth daily. 7 Active loratadine (CLARITIN) 10 mg tablet Take 10 mg by mouth daily. 7 Active atorvastatin (LIPITOR) 80 mg tablet Take 80 mg by mouth late in the day. 7 Active clorazepate (TRANXENE) 3.75 mg tablet Take 3.75 mg by mouth 2 times daily. 7 Active Vit 82-Zpht-NP-DSS (ADVANCED ) 90-1-50 mg Tablet Take 1 Tablet by mouth daily. 7 Active budesonide-formo teroL (SYMBICORT) 160-4.5 mcg/actuation HFA Aerosol Inhaler Take 2 Puffs by inhalation 2 times daily. 7 Active docusate sodium (COLACE) 100 mg capsule Take 100 mg by mouth daily. 7 Active acetaminophen (TYLENOL ARTHRITIS) 650 mg Extended Release tablet Take 650 mg by mouth every 6 hours as needed for Pain. 7 Active furosemide (LASIX) 20 mg tablet Take 20 mg by mouth daily. 7 Active isosorbide mononitrate (IMDUR) 30 mg Extended Release 24 hour tablet Take 30 mg by mouth late in the day. Active nitroglycerin (NITROSTAT) 0.4 mg Tablet, Sublingual Place 0.4 mg under tongue every 5 minutes as needed for Chest Pain. Active omeprazole (PriLOSEC) 20 mg Capsule, Delayed Release(E.C.) Take 20 mg by mouth daily. Active metoprolol tartrate (LOPRESSOR) 25 mg tablet Take 25 mg by mouth 2 times daily. Active cyanocobalamin (VITAMIN B-12) 100 mcg tablet Take 1,000 mcg by mouth daily. Active losartan (COZAAR) 50 mg tablet Take 50 mg by mouth daily. 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 (07/26/2020): Right hip COPD (chronic obstructive pulmonary disease) 01/2017 Essential hypertension 06/07/2016 Coronary artery disease invo lving [place] coronary artery of [place] heart without angina pectoris 06/07/2016 Social History Tobacco Use Types Packs/Day Years Used Date Smoking Tobacco: Every Day Cigarettes Smokeless Tobacco: Never Alcohol Use Standard Drinks/Week Comments Yes 0 (1 standard drink = 0.6 oz pur e alcohol) Sex and Gender Information Value Date Recorded Sex Assigned at Not on file Legal Sex Male 9:26 AM REGULATORY AGENCY DIRECTOR Gender Identity Not on file Sexual Orientation Not on file Last Filed Vital Signs Vital Sign Reading Time Taken Comments Blood Pressure 138/81 09/15/2018 11:42 AM CDT Pulse 82 09/15/2018 11:42 AM CDT Temperature 36.9 C (98.5 F) 09/15/2018 11:37 AM CDT Respiratory Rate 18 09/15/2018 11:42 AM CDT Oxygen Saturation - - Inhaled Oxygen Concentration - - Weight 71.7 [...] (#1) 2024 Medical Devices Implanted Type Area Project Eng Device Identifier Shelf Expiration Date Model / Serial / Lot Lens Io Bi-Aspheric Softechd+22.0d - [id number] Implanted:Qty: 1 on 08/11/2018 by Michael Lozano MD Eye Right: Eye [employer] 04/06/2023 SOFTECHD+22 .0D / [id number] / [id number] Lens Io Bi-Aspheric Softechd+22.0d - [id number] Implanted:Qty: 1 on 09/15/2018 by Michael Lozano MD Eye Left: Eye [employer] 04/06/2023 SOFTECHD+22 .0D / [id number] / [id number] [place] [address] [place] [address] MEDICARE MEDICAID [facility] MEDICARE HMO Care Teams Office Engineer Relationship Specialty Start Date End Date Andrew Rae Jr., MD [address] [place] [address] PCP - General Family Practice 08/11/18
[2025-02-22] MEDS: morphine 4 mg/mL SDV 1 mL 2 MG IVP ×2 (05:42→06:35)
--- NOTE | 2025-02-22 05:45 | P.HP_ITS ---
Providers/Chief Complaint 2 Admitting Physician: Hai Rodriguez MD Primary Care Provider: Saeid Arnold MD Chief Complaint: right side pain History of Present Illness Simeon Zarate is a 69 year old male with a history significant for COPD with 3- 5L continuous O2 use, combined systolic and diastolic CHF, HTN, and atrial fibrillation(not on anticoagulation), who presents with complaints of right sided abdominal pain. He states the pain was low-grade initially this past Thursday but Thursday became more prominent after having a bowel movement. He states the pain is constant and nothing has helped the pain. There is radiation of the pain to the back. He denies associated nausea or vomiting but does mention constipation. Because of his symptoms, he presented to the ED for further evaluation Medications/Allergies Home Medications ?Medication ?Instructions ?Recorded ?Confirmed ?Last Taken ?Type acetaminophen 500 mg tablet 1,500 mg PO BID PRN Pain 0 06/20/19 11/06/23 Unknown History (Tylenol Extra Strength) loratadine 10 mg tablet (Allergy 10 mg PO BID 03/10/22 11/06/23 05/17/23 History Relief (loratadine)) albuterol sulfate 90 mcg/actuation 2 inh inhalation Q6 H PRN Shortness 05/17/23 11/06/23 Unknown History aerosol inhaler Of Breath Or Wheezing fluticasone propionate 50 2 spray intranasal DAILY 11/06/23 05/17/23 History mcg/actuation nasal spray,suspension portable oxygen concentrator #1 ea 11/06/23 11/06/23 U nknown Rx doxycycline hyclate 100 mg tablet 100 mg PO BID #14 ta bs 11/10/23 Unknown Rx Home oxygen continuous See Rx Instructions .Route 0 11/16/23 Unknown Rx .COMPLEX #1 unit Inogen portable oxygen #1 ea 11/20/23 Unknown Rx concentrator. prednisone 20 mg tablet 40 mg (2 x 20 mg) PO .Daily in 12/09/23 Unknown Rx A.M. 5 days #10 tabs tramadol 50 mg tablet 150 mg (3 x 50 mg) PO BID CT N pain 12/30/23 Unknown Rx 30 days #180 tabs albuterol sulfate 90 mcg/actuation 2 puff inhalation Q ID #17 grams 02/11/24 Unknown Rx aerosol inhaler amoxicillin 875 mg-potassium 1 tab PO BID PRN wheezing 10 days 02/11/24 Unknown Rx clavulanate 125 mg tablet #20 tabs atorvastatin 80 mg tablet See Rx Instructions .Route 1 04/12/23 Unknown Rx .COMPLEX #90 tabs clopidogrel 75 mg tablet See Rx Instructions .Route 1 04/12/23 Unknown Rx .COMPLEX #90 tabs ezetimibe 10 mg tablet See Rx Instructions .Route 1 04/12/23 Unknown Rx .COMPLEX #90 tabs fluticasone fur. 100 mcg-umeclid See Rx Instructions . Route 02/11/24 Unknown Rx 62.5 mcg-vilant 25 mcg .COMPLEX #60 ea inhalat.powder (Trelegy Ellipta) glycopyrrolate 2 mg tablet 2 mg PO TID 90 days #270 ta bs 02/11/24 Unknown Rx ipratropium 20 mcg-albuterol 100 1 puff inhalation Q6H #4 grams 02/11/24 Unknown Rx mcg/actuation mist for inhalation (Combivent Respimat) isosorbide mononitrate 30 mg See Rx Instructions .Rout e 02/11/24 Unknown Rx tablet,extended release 24 hr .COMPLEX #90 tabs losartan 100 mg tablet See Rx Instructions .Route 1 04/12/23 Unknown Rx .COMPLEX #90 tabs omeprazole 40 mg capsule,delayed See Rx Instructions . Route 02/11/24 Unknown Rx release .COMPLEX #90 caps spironolactone 25 mg tablet 12.5 mg (1/2 x 25 mg) PO D AILY 90 02/11/24 Unknown Rx days #45 tabs Allergies Allergy/AdvReac Type Severity Reaction Status Date / Time aspirin Allergy ALGY-Swell Verified 11/06/23 09:47 Lip/Tongue/Throat PFSH Acute 2 PFSH: Medical History (Updated 02/22/25 @ 06:11 by Hai Rodriguez MD) Umbilical hernia Osteoporosis Medication management Vitamin D deficiency Prostate cancer screening Mixed hyperlipidemia Chronic back pain Chronic pain Sinusitis COPD (chronic obstructive pulmonary disease) Pulmonary nodule, right Colon polyps Xanthelasma GERD (gastroesophageal reflux disease) Pulmonary hypertension CHF (congestive heart failure) ASHD (arteriosclerotic heart disease) HTN (hypertension) Afib Skin cancer Surgical History H/O eye surgery Hx of cataract surgery Stented coronary artery Status post surgical removal of malignant neoplasm of skin Family History Mother Cancer Pancreatic Father COPD (chronic obstructive pulmonary disease) Sister Diabetes Brother Diabetes Social History Smoking and tobacco/nicotine status: former use of tobacco/nicotine Quit status (tobacco/nicotine): has quit using Year quit tobacco: Dec 26 2019 Former quit date comment: 2-3PPD x 50 years Second hand smoke exposure: Yes Alcohol intake: current Alcohol intake frequency: 0-2 Drinks per Day Alcohol type: beer Substance/Drug Use: never Caregiver/support person: Yes Lives independently: Yes Household members: none Marital status: Single service: Yes Current occupational status: disabled Pets and animals: Yes Do you think of yourself as: Straight/Heterosexual Current gender identity: Male Vitals/I&O/Wt Last Vital Signs Temp 98.1 F 02/22/25 03:39 Pulse 72 02/22/25 05:36 Resp 17 02/22/25 05:42 BP 159/77 02/22/25 05:36 Pulse Ox 100 02/22/25 05:42 O2 Del Method Nasal Cannula 02/22/25 04:42 O2 Flow Rate 3 02/22/25 04:42 Weight last 48 hrs Weight 64.864 kg Physical Exam 2 Const: COMMON NORMALS: no acute distress and patient oriented x3 Resp: COMMON NORMALS: normal respiratory effort, No retractions and No use of accessory muscles Cardio: COMMON NORMALS: regular rate, regular rhythm, S1 normal heart sound present and S2 normal heart sound present GI: COMMON NORMALS: Normal to inspection, nondistended, normoactive bowel sounds present PALPATION: Yes Tenderness to palpation present (GI) Details: RLQ and RUQ Neuro: COMMON NORMALS: patient oriented x3 and CN's II-XII intact bilaterally Data 02/22/25 04:35 02/22/25 04:35 Micro: Microbiology 02/22/25 04:49 Blood Culture - Preliminary Blood SPECIMEN COLLECTED 02/22/25 04:45 Blood Culture - Preliminary Blood SPECIMEN COLLECTED A&P Assessment and plan 1. Acute calculous cholecystitis: - ED has contact general surgery. Tentative plans are for PCT - Agree with the above. Patient is a high risk surgical candidate given his comorbid conditions - Morphine for pain 2mg q4 hours PRN - PRN Zofran IV - Zosyn for antibiotic coverage - NPO for now 2. Chronic respiratory failure with hypoxia: - Stable. Uses 3-5L [id number] - Continue Trelegy 3. Chronic congestive heart failure, unspecified heart failure type: - Ischemic cardiomyopathy, EF about 61% from echocardiogram 2018. Not in exacerbation at this time - Also with CAD and PCI to LAD and mid RCA in 2017 - Resume aldactone, imdur, statin, plavix when able 4. Atrial fibrillation, unspecified type: - Per last cardiology note, not on anticoagulation due to hig bleeding risk - Currently stable 5. Chronic obstructive pulmonary disease, unspecified COPD type: - Maintained on ongoing Azithromycin therapy every other day. Continued PDMP PDMP Reviewed: Not Reviewed Attestations 2 Medical Necessity Statement*: Patient will require greater than two midnights inpatient for management of his cholecystitis Coding Level of Care Code Acute Code for [facility] Diagnoses Acute calculous cholecystitis K80.00 Chronic respiratory failure with hypoxia J96.11 Chronic congestive heart failure, unspecified heart failure type I50.9 Heart failure chronicity: chronic Heart failure type: unspecified Atrial fibrillation, unspecified type I48.91 Atrial fibrillation type: unspecified Chronic obstructive pulmonary disease, unspecified COPD type J44.9 COPD type: unspecified COPD
--- NOTE | 2025-02-22 07:07 | P.CONIM_ITS ---
Providers/Reason For Consult 2 Consulting Physician/Specialty*: Dr. Phoenix general surgery Reason for Consult*: Chronic cholecystitis Attending Physician: Hai Rodriguez MD Primary Care Provider: Saeid Arnold MD History of Present Illness History of Present Illness Simeon Zarate is a 69 year old male with multiple comorbidities including severe COPD on 24 hours 3 L nasal cannula, heart failure (on Plavix), pulmonary hypertension, severely deconditioned who presented with chronic cholecystitis. Patient reports at least 2 months of right upper quadrant pain. Pain has been worse since 02/18/2025. On exam tender in the right upper quadrant. I reviewed the CT scan imaging and it shows changes consistent with chronic cholecystitis with severe inflammatory changes in the right upper quadrant. Medications/Allergies Home Medications ?Medication ?Instructions ?Recorded ?Confirmed ?Last Taken ?Type acetaminophen 500 mg tablet 1,500 mg PO BID PRN Pain 0 06/20/19 11/06/23 Unknown History (Tylenol Extra Strength) loratadine 10 mg tablet (Allergy 10 mg PO BID 03/10/22 11/06/23 05/17/23 History Relief (loratadine)) albuterol sulfate 90 mcg/actuation 2 inh inhalation Q6 H PRN Shortness 05/17/23 11/06/23 Unknown History aerosol inhaler Of Breath Or Wheezing fluticasone propionate 50 2 spray intranasal DAILY 11/06/23 05/17/23 History mcg/actuation nasal spray,suspension portable oxygen concentrator #1 ea 11/06/23 02/22/25 U nknown Rx doxycycline hyclate 100 mg tablet 100 mg PO BID #14 ta bs 11/10/23 Unknown Rx Home oxygen continuous See Rx Instructions .Route 0 11/16/23 Unknown Rx .COMPLEX #1 unit Inogen portable oxygen #1 ea 11/20/23 02/22/25 Unkn own Rx concentrator. prednisone 20 mg tablet 40 mg (2 x 20 mg) PO .Daily in 12/09/23 Unknown Rx A.M. 5 days #10 tabs tramadol 50 mg tablet 150 mg (3 x 50 mg) PO BID ND N pain 12/30/23 Unknown Rx 30 days #180 tabs albuterol sulfate 90 mcg/actuation 2 puff inhalation Q ID #17 grams 02/11/24 Unknown Rx aerosol inhaler amoxicillin 875 mg-potassium 1 tab PO BID PRN wheezing 10 days 02/11/24 Unknown Rx clavulanate 125 mg tablet #20 tabs atorvastatin 80 mg tablet See Rx Instructions .Route 1 04/12/23 Unknown Rx .COMPLEX #90 tabs clopidogrel 75 mg tablet See Rx Instructions .Route 1 04/12/23 Unknown Rx .COMPLEX #90 tabs ezetimibe 10 mg tablet See Rx Instructions .Route 1 04/12/23 Unknown Rx .COMPLEX #90 tabs fluticasone fur. 100 mcg-umeclid See Rx Instructions . Route 02/11/24 Unknown Rx 62.5 mcg-vilant 25 mcg .COMPLEX #60 ea inhalat.powder (Trelegy Ellipta) glycopyrrolate 2 mg tablet 2 mg PO TID 90 days #270 ta bs 02/11/24 Unknown Rx ipratropium 20 mcg-albuterol 100 1 puff inhalation Q6H #4 grams 02/11/24 Unknown Rx mcg/actuation mist for inhalation (Combivent Respimat) isosorbide mononitrate 30 mg See Rx Instructions .Rout e 02/11/24 Unknown Rx tablet,extended release 24 hr .COMPLEX #90 tabs losartan 100 mg tablet See Rx Instructions .Route 1 04/12/23 Unknown Rx .COMPLEX #90 tabs omeprazole 40 mg capsule,delayed See Rx Instructions . Route 02/11/24 Unknown Rx release .COMPLEX #90 caps spironolactone 25 mg tablet 12.5 mg (1/2 x 25 mg) PO D AILY 90 02/11/24 Unknown Rx days #45 tabs Allergies Allergy/AdvReac Type Severity Reaction Status Date / Time aspirin Allergy ALGY-Swell Verified 11/06/23 09:47 Lip/Tongue/Throat Current Medications Generic Name Dose Route Start Last Admin Trade Name Freq PRN Reason Stop Dose Admin Sodium Chloride 1,000 mls @ 125 mls/hr 02/22/25 06:00 02/22/25 06:37 Sodium Chloride 0.9% IV 125 mls/hr .Q8H GINNY Administration PFSH Acute 2 PFSH: Medical History (Updated 02/22/25 @ 08:50 by Simba Phoenix MD) Umbilical hernia Osteoporosis Medication management Vitamin D deficiency Prostate cancer screening Mixed hyperlipidemia Chronic back pain Chronic pain Sinusitis COPD (chronic obstructive pulmonary disease) Pulmonary nodule, right Colon polyps Xanthelasma GERD (gastroesophageal reflux disease) Pulmonary hypertension CHF (congestive heart failure) ASHD (arteriosclerotic heart disease) HTN (hypertension) Afib Skin cancer Surgical History H/O eye surgery Hx of cataract surgery Stented coronary artery Status post surgical removal of malignant neoplasm of skin Family History Mother Cancer Pancreatic Father COPD (chronic obstructive pulmonary disease) Sister Diabetes Brother Diabetes Social History Smoking and tobacco/nicotine status: former use of tobacco/nicotine Quit status (tobacco/nicotine): has quit using Year quit tobacco: Dec 26 2019 Former quit date comment: 2-3PPD x 50 years Second hand smoke exposure: Yes Alcohol intake: current Alcohol intake frequency: 0-2 Drinks per Day Alcohol type: beer Substance/Drug Use: never Caregiver/support person: Yes Lives independently: Yes Household members: none Marital status: Single service: Yes Current occupational status: disabled Pets and animals: Yes Do you think of yourself as: Straight/Heterosexual Current gender identity: Male Vitals/I&O/Wt Last Vital Signs Temp 98.2 F 02/22/25 06:00 Pulse 78 02/22/25 06:00 Resp 16 02/22/25 06:00 BP 198/90 02/22/25 06:00 Pulse Ox 100 02/22/25 06:00 O2 Del Method Nasal Cannula 02/22/25 06:00 O2 Flow Rate 2 02/22/25 06:00 02/21/25 02/22/25 02/22/25 22:59 06:59 14:59 Intake Total 50 / 50 Balance 50 / 50 Weight last 48 hrs Weight 138 lb Weight 143 lb Physical Exam 2 Narrative: Chest: Tachypneic on 3 L nasal cannula Heart: Regular rate and rhythm. Abdomen: Soft, tender right upper quadrant. Benign. Data 02/22/25 04:35 02/22/25 04:35 Micro: Microbiology 02/22/25 04:49 Blood Culture - Preliminary Blood SPECIMEN COLLECTED 02/22/25 04:45 Blood Culture - Preliminary Blood SPECIMEN COLLECTED A&P Assessment and plan 1. Chronic cholecystitis: Plan: 69-year-old male with multiple comorbidities including heart failure (on Plavix), severe COPD on 3 L nasal cannula 24 hours a day, severely deconditioned who presents with chronic cholecystitis. Severe inflammatory changes right upper quadrant. On Plavix. A cholecystectomy would be technically very challenging with high risk of perioperative complications including bleeding since he is on Plavix. He is at higher risk of converting to an open cholecystectomy which could lead to pulmonary complications in a patient with severe COPD. He is unfortunately not a good surgical candidate. The best option in his case is to proceed with percutaneous cholecystostomy tube by IR and antibiotics. He can follow-up with me in 6 weeks for consideration of percutaneous cholecystostomy tube removal. Discussed with hospitalist. PDMP PDMP Reviewed: Not Reviewed Coding Level of Care Code 08210 Diagnoses Chronic cholecystitis K81.1
[2025-02-22 08:44] LABS: Glucose Urine UA Negative (Normal); Nitrate Urine Negative (Negative); Specific Gravity, Urine 1.012 (1.005-1.030)
[2025-02-22 08:47] LABS: Add Urine Microscopic? YES
--- NOTE | 2025-02-22 08:50 | PC.PHAR ---
Pt is a resident at [facility]
--- NOTE | 2025-02-22 11:10 | PM.TDS ---
Transfer Summary Providers Date of Admission: 02/22/25 05:11 Date of Discharge/Transfer: 02/22/25 Attending Provider at Admission: Hai Rodriguez MD Attending Provider at Transfer: Hien Bill NP Primary Care Provider: Saeid Arnold MD Transfer Plans: Anticipated date of transfer: 02/22/25. Diagnoses at Discharge Discharge Diagnosis 1. Chronic cholecystitis: Reason for Visit Reason for Visit right side pain Brief History: Admission: Simeon Zarate is a 69 year old male with a history significant for COPD with 3-5L continuous O2 use, combined systolic and diastolic CHF, HTN, and atrial fibrillation(not on anticoagulation), who presents with complaints of right sided abdominal pain. He states the pain was low-grade initially this past Thursday but Thursday became more prominent after having a bowel movement. He states the pain is constant and nothing has helped the pain. There is radiation of the pain to the back. He denies associated nausea or vomiting but does mention constipation. Because of his symptoms, he presented to the ED for further evaluation. Hospital Course Hospital Course 1. Acute calculous cholecystitis: - ED has contact general surgery. originally planed for PCT - reviewed with IR and he stated due to 4mm stone in common bile duct will need transfer for ERCP. - Agree with the above. Patient is a high risk surgical candidate given his comorbid conditions - Morphine for pain 2mg q4 hours PRN - PRN Zofran IV - Zosyn for antibiotic coverage - NPO for now - Ground transport 2. Chronic respiratory failure with hypoxia: - Stable. Uses 3-5L [id number] - Continue Trelegy 3. Chronic congestive heart failure, unspecified heart failure type: - Ischemic cardiomyopathy, EF about 61% from echocardiogram 2018. Not in exacerbation at this time - Also with CAD and PCI to LAD and mid RCA in 2017 - Resume aldactone, imdur, statin, plavix when able 4. Atrial fibrillation, unspecified type: - Per last cardiology note, not on anticoagulation due to high bleeding risk - Currently stable 5. Chronic obstructive pulmonary disease, unspecified COPD type: - Maintained on ongoing Azithromycin therapy every other day. Continued Spoke with Cha - accepting for higher level of care and surgical interventions. Patient will transport via EMS. All questions and concerns addressed at the bedside with the patient. Patient is agreeable to transport. Further management and outpatient follow-up will be per accepting attending. Physical Exam Const: COMMON NORMALS: no acute distress and patient oriented x3 Resp: COMMON NORMALS: normal respiratory effort, No retractions and No use of accessory muscles AUSCULTATION: diminished lung sounds OTHER: Oxygen via nasal cannula 2 L/min Cardio: COMMON NORMALS: regular rate, regular rhythm, S1 normal heart sound present and S2 normal heart sound present RATE: regular rate RHYTHM: regular rhythm HEART SOUNDS: S1 normal heart sound present and S2 normal heart sound present GI: COMMON NORMALS: Normal to inspection, nondistended, normoactive bowel sounds present PALPATION: Yes Tenderness to palpation present (GI) Details: RLQ and RUQ Neuro: COMMON NORMALS: patient oriented x3 and CN's II-XII intact bilaterally TS Data Studies Completed and Pending Pending at discharge Category Date Time Status Blood Culture Stat Lab 02/22/25 04:49 Results Complete Blood Count w/Auto AM LABS Lab 02/23/25 04:00 Ordered Comprehensive Metabolic Panel AM LABS Lab 02/23/25 04:00 Ordered Completed Studies During Hospitalization Category Date Time Status CT abdomen pelvis wo con [id number] Stat Cat Scan 02/22/25 04:04 Completed Laboratory Last Values WBC 13.05 10^3/uL (3.29-11.43) H 02/22/25 04:35 RBC 3.81 10^6/uL (3.85-5.65) L 02/22/25 04:35 Hgb 12.30 g/dL (11.27-16.99) 02/22/25 04:35 Hct 38.3 % (37-53) 02/22/25 04:35 MCV 100.5 fl (82-101) 02/22/25 04:35 MCH 32.3 pg (27-33) 02/22/25 04:35 MCHC 32.1 g/dL (30-55) 02/22/25 04:35 RDW 11.9 % (12.1-15.1) L 02/22/25 04:35 Plt Count 252 10^3/cmm (157-399) 02/22/25 04:35 MPV 9.3 fL (7.4-10.4) 02/22/25 04:35 Neut % (Auto) 79.8 % 02/22/25 04:35 Lymph % (Auto) 8.0 % 02/22/25 04:35 Ness % (Auto) 9.9 % 02/22/25 04:35 Eos % (Auto) 1.7 % 02/22/25 04:35 Baso % (Auto) 0.4 % 02/22/25 04:35 Neut # (Auto) 10.41 10^3/uL (1.8-7.7) H 02/22/25 04:35 Lymph # (Auto) 1.1 10^3/uL (0.8-4.8) 02/22/25 04:35 Ness # (Auto) 1.3 10^3/uL (0.2-0.9) H 02/22/25 04:35 Eos # (Auto) 0.2 10^3/uL (0.0-0.8) 02/22/25 04:35 Baso # (Auto) 0.1 10^3/uL (0.0-0.1) 02/22/25 04:35 Nucleated RBC % (auto) 0 % 02/22/25 04:35 Nucleated RBCs # 0.0 /100WBC 02/22/25 04:35 Sodium 137 mmol/L (136-145) 02/22/25 04:35 Potassium 4.5 mmol/L (3.5-5.1) 02/22/25 04:35 Chloride 97 mmol/L (98-107) L 02/22/25 04:35 Carbon Dioxide 30 mmol/L (22-29) H 02/22/25 04:35 Anion Gap 14.5 (5-19) 02/22/25 04:35 BUN 8 mg/dL (8-23) 02/22/25 04:35 Creatinine 0.5 mg/dL (0.7-1.2) L 02/22/25 04:35 GFR Calculation Not Reportable 02/22/25 04:35 Glucose 164 mg/dL (65-115) H 02/22/25 04:35 Calculated Osmolality 286 mOsm/kg (285-295) 02/22/25 04:35 Lactic Acid 1.3 mmol/L (0.5-2.2) 02/22/25 04:35 Calcium 10.3 mg/dL (8.5-10.5) 02/22/25 04:35 Total Bilirubin 0.3 mg/dL (0.15-1.2) 02/22/25 04:35 AST 13 U/L (0-40) 02/22/25 04:35 ALT 15 U/L (0-41) 02/22/25 04:35 Alkaline Phosphatase 100 U/L (40-130) 02/22/25 04:35 Total Protein 7.5 g/dL (6.6-8.7) 02/22/25 04:35 Albumin 4.3 g/dL (3.5-5.2) 02/22/25 04:35 Globulin 3.2 g/dL (1.3-4.6) 02/22/25 04:35 Lipase 19 U/L (13-60) 02/22/25 04:35 Urine Color Yellow (Yellow) 02/22/25 08:15 Urine Appearance Clear (CLEAR) 02/22/25 08:15 Urine pH 8.0 (5-7) A 02/22/25 08:15 Ur Specific [place] 1.012 (1.005-1.030) 02/22/25 08:15 Urine Protein Negative (Negative) 02/22/25 08:15 Urine Glucose (UA) Negative (Normal) 02/22/25 08:15 Urine Ketones Negative (Negative) 02/22/25 08:15 Urine Blood Negative (Negative) 02/22/25 08:15 Urine Nitrate Negative (Negative) 02/22/25 08:15 Urine Bilirubin Negative (Negative) 02/22/25 08:15 Urine Urobilinogen 0.2 mg/dL (Negative) 02/22/25 08:15 Ur Leukocyte Esterase Negative (Negative) 02/22/25 08:15 Urine RBC 0-2 /hpf (0-2) 02/22/25 08:15 Urine WBC 0-5 /hpf (0-5) 02/22/25 08:15 Ur Squamous Epith Cells 0-5 /hpf (0-5) 02/22/25 08:15 Amorphous Sediment Not Reportable 02/22/25 08:15 Urine Bacteria None seen /hpf (NONE) 02/22/25 08:15 Hyaline Casts 0.40 /lpf 02/22/25 08:15 Radiology Impressions Abdomen/Pelvis CT 02/22/25 04:04 IMPRESSION: 1. Distended gallbladder with gallbladder wall thickening, consistent with acute cholecystitis. Surgical evaluation recommended. Mildly impacted stone in the gallbladder neck. 2. Moderate fecal retention, correlate for constipation. 3. Diverticulosis, without acute diverticulitis. No small bowel obstruction. No free air. 4. Fat containing left inguinal hernia. 5. No nephrolithiasis, hydronephrosis, or obstructive uropathy. Recent Clincial Data Last Vital Signs Temp 98.2 F 02/22/25 07:24 Pulse 76 02/22/25 09:11 Resp 16 02/22/25 09:11 BP 134/70 02/22/25 07:24 Pulse Ox 98 02/22/25 09:11 O2 Del Method Nasal Cannula 02/22/25 09:11 O2 Flow Rate 2 02/22/25 09:11 Vital Signs Temp Pulse Resp BP Pulse Ox O2 Del Method O2 Flow Rate 02/22/25 09:11 76 16 98 Nasal Cannula 2 02/22/25 07:24 98.2 F 85 14 134/70 94 Nasal Cannula 02/22/25 06:00 98.2 F 78 16 198/90 100 Nasal Cannula 2 02/22/25 06:00 Nasal Cannula 02/22/25 05:42 17 100 02/22/25 05:36 72 159/77 100 02/22/25 04:42 70 156/76 100 Nasal Cannula 3 02/22/25 03:51 94 145/82 100 Nasal Cannula 3 02/22/25 03:39 98.1 F 77 17 152/80 97 Nasal Cannula 3 Intake & Output/Weight 02/20/25 02/21/25 02/22/25 02/23/25 06:59 06:59 06:59 06:59 Intake Total 50 / 50 Balance 50 / 50 Weight 62.596 kg Vitals Last Vital Signs Temp 98.2 F 02/22/25 07:24 Pulse 76 02/22/25 09:11 Resp 16 02/22/25 09:11 BP 134/70 02/22/25 07:24 Pulse Ox 98 02/22/25 09:11 O2 Del Method Nasal Cannula 02/22/25 09:11 O2 Flow Rate 2 02/22/25 09:11 TS Medications Medications Albuterol/Ipratropium (Ipratropium-Albuterol 3 Ml Neb) 3 ml INHALATION QID.RESPIRATORY GINNY Last Admin: 02/22/25 09:11 Dose: 3 ml Azithromycin (Azithromycin 250 Mg Tablet) 500 mg PO EVERY OTHER DAY GINNY; Protocol Budesonide (Budesonide 0.5 Mg/2 Ml Neb) 0.5 mg INHALATION BID.RESPIRATORY [facility] Last Admin: 02/22/25 09:11 Dose: 0.5 mg Clopidogrel Bisulfate (Clopidogrel 75 Mg Tablet) 75 mg PO DAILY [facility] Ezetimibe (Ezetimibe 10 Mg Tablet) 10 mg PO DAILY [facility] Last Admin: 02/22/25 08:12 Dose: 10 mg Enoxaparin Sodium (Enoxaparin 40 Mg/0.4 Ml Syringe) 40 mg SUBCUT Q24H [facility] Last Admin: 02/22/25 08:11 Dose: Not Given Sodium Chloride (Sodium Chloride 0.9%) 1,000 mls @ 125 mls/hr IV .Q8H [facility] Last Admin: 02/22/25 06:37 Dose: 125 mls/hr Piperacillin Sod/Tazobactam (Sod 3.375 gm/ Sodium Chloride) 50 mls @ 12.5 mls/hr IV Q8H [facility] Isosorbide Mononitrate (Isosorbide Mononitrate Er 30 Mg Tablet) 30 mg PO DAILY [facility] Last Admin: 02/22/25 08:13 Dose: 30 mg Losartan Potassium (Losartan 100 Mg Tablet) 100 mg PO DAILY [facility] Morphine Sulfate (Morphine 4 Mg/Ml Sdv 1 Ml) 4 mg IVP Q4H PRN PRN Reason: SEVERE PAIN Ondansetron HCl (Ondansetron 2 Mg/Ml Sdv 2 Ml) 4 mg IVP Q8H PRN PRN Reason: vomiting, or N/V if npo Pantoprazole Sodium (Pantoprazole Dr 40 Mg Tablet) 40 mg PO DAILY [facility] Last Admin: 02/22/25 08:13 Dose: 40 mg Spironolactone (Spironolactone 25 Mg Tablet) 12.5 mg PO DAILY [facility] Discontinued Medications Piperacillin Sod/Tazobactam (Sod 3.375 gm/ Sodium Chloride) 50 mls @ 100 mls/hr IV ONCE ONE; Protocol Stop: 02/22/25 05:15 Last Infusion: 02/22/25 06:14 Dose: Infused Piperacillin Sod/Tazobactam (Sod / Sodium Chloride) 50 mls @ 0 mls/hr [id number] CONT GINNY; Protocol Morphine Sulfate (Morphine 4 Mg/Ml Sdv 1 Ml) 2 mg IVP ONCE ONE Stop: 02/22/25 05:26 Last Admin: 02/22/25 05:42 Dose: 2 mg Morphine Sulfate (Morphine 4 Mg/Ml Sdv 1 Ml) 2 mg IVP Q4H PRN PRN Reason: SEVERE PAIN Morphine Sulfate (Morphine 4 Mg/Ml Sdv 1 Ml) 2 mg IVP Q4H PRN PRN Reason: SEVERE PAIN Morphine Sulfate (Morphine 4 Mg/Ml Sdv 1 Ml) 2 mg IVP ONCE ONE Stop: 02/22/25 06:25 Last Admin: 02/22/25 06:35 Dose: 2 mg Non-Formulary Medication (Effsiitvnlg-Fagecoxev-Baxokzmz [Trelegy Ellipta]) 0 inh .ROUTE .COMPLEX [facility]IN[facility] Ondansetron HCl (Ondansetron 2 Mg/Ml Sdv 2 Ml) 4 mg IVP Q6H PRN PRN Reason: NAUSEA AND VOMITING Allergies aspirin Allergy (Verified 11/06/23 09:47) ALGY-Swell Lip/Tongue/Throat Home Medications loratadine 10 mg tablet (Allergy Relief (loratadine)) 10 mg PO QAM 03/10/22 [History Confirmed 02/22/25] albuterol sulfate 90 mcg/actuation aerosol inhaler 2 inh inhalation Q6H PRN Shortness Of Breath Or Wheezing 05/17/23 [History Confirmed 02/22/25] portable oxygen concentrator #1 ea 11/06/23 [Rx Confirmed 02/22/25] Inogen portable oxygen concentrator. #1 ea 11/20/23 [Rx Confirmed 02/22/25] clopidogrel 75 mg tablet See Rx Instructions .Route .COMPLEX #90 tabs 02/11/24 [Rx Confirmed 02/22/25] ezetimibe 10 mg tablet See Rx Instructions .Route .COMPLEX #90 tabs 02/11/24 [Rx Confirmed 02/22/25] fluticasone fur. 100 mcg-umeclid 62.5 mcg-vilant 25 mcg inhalat.powder (Trelegy Ellipta) See Rx Instructions .Route .COMPLEX #60 ea 02/11/24 [Rx Confirmed 02/22/25] ipratropium 20 mcg-albuterol 100 mcg/actuation mist for inhalation (Combivent Respimat) 1 puff inhalation Q6H #4 grams 02/11/24 [Rx Confirmed 02/22/25] isosorbide mononitrate 30 mg tablet,extended release 24 hr See Rx Instructions .Route .COMPLEX #90 tabs 02/11/24 [Rx Confirmed 02/22/25] losartan 100 mg tablet See Rx Instructions .Route .COMPLEX #90 tabs 02/11/24 [Rx Confirmed 02/22/25] omeprazole 40 mg capsule,delayed release See Rx Instructions .Route .COMPLEX #90 caps 02/11/24 [Rx Confirmed 02/22/25] spironolactone 25 mg tablet 12.5 mg (1/2 x 25 mg) PO DAILY 90 days #45 tabs 02/11/24 [Rx Confirmed 02/22/25] acetaminophen 325 mg tablet 650 mg PO Q6H PRN pain/elevated temp 02/22/25 [History Confirmed 02/22/25] acetaminophen 325 mg tablet 650 mg PO QAM 02/22/25 [History Confirmed 02/22/25] acetylcysteine 100 mg/mL (10 %) solution 3 ml inhalation Q6H mucous secretions. 02/22/25 [History Confirmed 02/22/25] alendronate 70 mg tablet 70 mg PO Q7D 02/22/25 [History Confirmed 02/22/25] aluminum-mag hydroxide-simethicone 200 mg-200 mg-20 mg/5 mL oral susp (Agnieskza-Lanta) 30 ml PO Q6H PRN Indigestion 02/22/25 [History Confirmed 02/22/25] atorvastatin 80 mg tablet 80 mg PO BEDTIME 02/22/25 [History Confirmed 02/22/25] azithromycin 500 mg tablet 500 mg PO .QOD 02/22/25 [History Confirmed 02/22/25] ergocalciferol (vitamin D2) 1,250 mcg (50,000 unit) capsule (Vitamin D2) 1,250 mcg PO Q7D 02/22/25 [History Confirmed 02/22/25] ipratropium 0.5 mg-albuterol 3 mg (2.5 mg base)/3 mL nebulization soln 3 ml inhalation Q6H PRN Shortness Of Breath 02/22/25 [History Confirmed 02/22/25] naloxone 4 mg/actuation nasal spray (Narcan) 4 mg intranasal Q3M PRN overdose 02/22/25 [History Confirmed 02/22/25] tuberculin PPD 5 tub. unit/0.1 mL intradermal injection solution (Aplisol) 5 tb unit intradermal .[id number] 02/22/25 [History Confirmed 02/22/25] Discharge Plan Discharge Patient Disposition: Xfer Other Condition: Stable Prescriptions: No Action loratadine [Allergy Relief (loratadine)] 10 mg tablet 10 mg PO QAM (DME) portable oxygen concentrator See Rx Instructions .Route .MEDSUPPLY Qty: 1 0RF Rx Instructions: As directed - patient needs a unit that provides 5L/min (DME) Inogen portable oxygen concentrator. See Rx Instructions .Route .MEDSUPPLY Qty: 1 0RF Rx Instructions: 2 lpm continuous or 5 pulse per NC Trelegy Ellipta 100-62.5-25 mcg blister with device See Rx Instructions .ROUTE .COMPLEX Qty: 60 2RF Dose Instruction: INHALE 1 PUFF BY MOUTH DAILY Rx Instructions: INHALE 1 PUFF BY MOUTH DAILY clopidogrel 75 mg tablet See Rx Instructions .ROUTE .COMPLEX Qty: 90 0RF Dose Instruction: TAKE 1 TABLET BY MOUTH DAILY Rx Instructions: TAKE 1 TABLET BY MOUTH AT BEDTIME. ezetimibe 10 mg tablet See Rx Instructions .ROUTE .COMPLEX Qty: 90 1RF Dose Instruction: TAKE 1 TABLET BY MOUTH DAILY Rx Instructions: TAKE 1 TABLET BY MOUTH IN THE MORNING. Combivent Respimat 20-100 mcg/actuation mist 1 puff inhalation Q6H Qty: 4 5RF isosorbide mononitrate 30 mg tablet extended release 24 hr See Rx Instructions .ROUTE .COMPLEX Qty: 90 1RF Dose Instruction: TAKE 1 TABLET BY MOUTH DAILY Rx Instructions: TAKE 1 TABLET BY MOUTH AT BEDTIME. losartan 100 mg tablet See Rx Instructions .ROUTE .COMPLEX Qty: 90 1RF Dose Instruction: TAKE 1 TABLET BY MOUTH DAILY Rx Instructions: TAKE 1 TABLET BY MOUTH DAILY omeprazole 40 mg capsule,delayed release(DR/EC) See Rx Instructions .ROUTE .COMPLEX Qty: 90 0RF Dose Instruction: TAKE 1 CAPSULE BY MOUTH DAILY Rx Instructions: TAKE 1 CAPSULE BY MOUTH IN THE MORNING. spironolactone 25 mg tablet 12.5 mg PO DAILY 90 Days Qty: 45 1RF albuterol sulfate 90 mcg/actuation HFA aerosol inhaler 2 inh inhalation Q6H PRN (Reason: Shortness Of Breath Or Wheezing) Aplisol 5 tub. unit /0.1 mL Solution 5 tb unit INTRADERMAL .[id number] acetaminophen 325 mg Tablet 650 mg PO QAM acetaminophen 325 mg Tablet 650 mg PO Q6H PRN (Reason: pain/elevated temp) ipratropium-albuterol 0.5 mg-3 mg(2.5 mg base)/3 mL Solution For Nebulization 3 ml INHALATION Q6H PRN (Reason: Shortness Of Breath) alendronate 70 mg Tablet 70 mg PO Q7D Rx Instructions: Thursday acetylcysteine 100 mg/mL (10 %) Solution 3 ml INHALATION Q6H ergocalciferol (vitamin D2) [Vitamin D2] 1,250 mcg (50,000 unit) Capsule 1,250 mcg PO Q7D Rx Instructions: Sundays alum-mag hydroxide-simeth [Agnieszka-Lanta] 200-200-20 mg/5 mL Suspension 30 ml PO Q6H PRN (Reason: Indigestion) Rx Instructions: administer between meals and at bedtime azithromycin 500 mg Tablet 500 mg PO .QOD naloxone [Narcan] 4 mg/actuation [place],Non-Aerosol 4 mg INTRANASAL Q3M PRN (Reason: overdose) Rx Instructions: spray 1 dose into ONE nostril; alternate nostrils w each dose until help arrives atorvastatin 80 mg tablet 80 mg PO BEDTIME Discharge Order = DC NOW: Discharge Order (Routine); Ordered 02/22/25 Ordered By: Hien Bill Referrals: Arthur Arnold MD [Primary Care Provider, Internal Medicine] Patient Instructions: Abdominal Pain (ED) Transfer Attestations Time Spent in Transfer Care: greater than 30 min Quality Metrics Clinical Quality Measures [ No reported AMI, CVA or VTE this stay] Coding Level of Care Code 38427 Diagnoses Chronic cholecystitis K81.1
--- NOTE | 2025-02-22 13:24 | PC.NURSE ---
Called report to Milagros Guillen RN at [facility].
[2025-02-22] MEDS: morphine 4 mg/mL SDV 1 mL IVP (21:29)
--- NOTE | 2025-02-22 22:35 | PC.NURSE ---
EMS here for patient transfer to [facility]. Belongings taken with patient, potline monitor removed. IV site to left forearm, and 2L O2 via NC in place
== END 2025-02-22 22:45 | disposition short-term general hospital (02) | DRG 445 ==
LOC: ER 05:19 → MEDSURG 05:35
PROVIDERS: Admitting Provider Family Medicine; Emergency Provider Family Medicine; PCP Internal Medicine; Visit Provider Registered Nurse
DX: K80.12 Calculus of gallbladder with acute and chronic cholecystitis without obstruction (principal); I50.32 Chronic diastolic (congestive) heart failure; J96.11 Chronic respiratory failure with hypoxia; J44.9 Chronic obstructive pulmonary disease, unspecified; I11.0 Hypertensive heart disease with heart failure; I48.91 Unspecified atrial fibrillation; K59.00 Constipation, unspecified; I25.5 Ischemic cardiomyopathy; M81.0 Age-related osteoporosis without current pathological fracture; E78.2 Mixed hyperlipidemia; G89.29 Other chronic pain; M54.9 Dorsalgia, unspecified; H02.60 Xanthelasma of unspecified eye, unspecified eyelid; I25.10 Atherosclerotic heart disease of native coronary artery without angina pectoris; I27.20 Pulmonary hypertension, unspecified; K21.9 Gastro-esophageal reflux disease without esophagitis; Z99.81 Dependence on supplemental oxygen; Z79.51 Long term (current) use of inhaled steroids; Z79.02 Long term (current) use of antithrombotics/antiplatelets; Z87.891 Personal history of nicotine dependence; Z95.5 Presence of coronary angioplasty implant and graft
CPT/HCPCS: 36415; 74176; 80053; 81001; 83605; 83690; 85025; 87040; 94640; 96365; 99285; J2270; J2543; J7030; J7626; J9999